=== PATIENT | female | born 1945 | race Caucasian/White ===

== ENCOUNTER 2024-01-21 13:51 | Inpatient (IN) | payer MEDICARE, OTHER, SELFPAY ==
[2024-01-21] VITALS (47 sets, daily range): BP systolic 65–111; BP diastolic 44–85; BMI 26.4
[2024-01-21 10:56] LABS: % Basophils 0.4 % (0-2); % Eosinophils 3.1 % (0-6); % Lymphocytes 5.4 % (20.5-51.1); % Monocytes 4.3 % (1.7-9.3); % Neutrophils 85.8 % (42.2-75.2); Absolute Basophils 0.1 10^3/uL (0-0.2); Absolute Eosinophils 0.9 10^3/uL (0-0.7); Absolute Immature Granulocytes 0.3 10^3/uL (0-0.05); Absolute Lymphocytes 1.5 10^3/uL (1.2-3.4); Absolute Monocytes 1.2 10^3/uL (0.1-0.6); Absolute Neutrophils 24.1 10^3/uL (1.4-6.5); Hematocrit 31.8 % (37.0-47.0); Hemoglobin 11.2 g/dL (12.0-16.0); Mean Corp Hgb Conc. 35.2 g/dL (33.0-37.0); Mean Corpuscular Hgb 31.9 pg (27.0-31.0); Mean Corpuscular Volume 90.6 fL (81.0-99.0); Mean Platelet Volume 9.1 fL (7.4-10.4); Nucleated Red Blood Cells % 0 %; Platelet Count 420 10^3/uL (130-400); Red Blood Cell Count 3.51 10^6/uL (4.20-5.40); Red Cell Dist. Width 13.9 % (11.5-14.5); White Blood Cell Count 28.1 10^3/uL (4.8-10.8)
[2024-01-21 11:00] LABS: Urine Albumin Trace (Neg - Trace); Urine Bilirubin Negative (Negative); Urine Character Very Cloudy (Clear); Urine Color Yellow; Urine Glucose Negative (Negative); Urine Ketone Negative (Negative); Urine Leukocyte 2+ (Negative); Urine Nitrite Positive (Negative); Urine Occult Blood 1+ (Negative); Urine Urobilinogen Negative (Neg - 1+)
[2024-01-21 11:08] LABS: ALT (SGPT) 21 U/L (0-35); AST (SGOT) 38 U/L (14-36); Alkaline Phosphatase 164 U/L (38-126); Blood Urea Nitrogen 45 mg/dl (7-17); Calcium 8.9 mg/dl (8.4-10.2); Carbon Dioxide 24 mmol/L (22-30); Chloride 93 mmol/L (98-107); Glucose 70 mg/dl (70-99); Lipase 11 U/L (23-300); Potassium 3.4 mmol/L (3.5-5.1); Sodium 126 mmol/L (135-145); Total Bilirubin 1.4 mg/dl (0.2-1.3); Total Protein 6.2 g/dl (6.3-8.2); eGFR > 60.00
--- NOTE | 2024-01-21 11:26 | ED.GENMED ---
History of Present Illness
General
Chief Complaint: Change in Mental Status
Source: patient and family
Exam Limitations: none
Time Seen by Provider: 01/21/24 10:35
Nursing documentation reviewed up to this point in time: agreed with
Travel History
Have you had any contact with someone who has COVID-19?: No
Do you have any symptoms of coronavirus? Fever > 100 degrees, chills, cough, shortness of breath, sore throat, loss of taste or smell, muscle aches, or headache?: No
History of Present Illness
History of Present Illness:
[facility] to progressively worsening generalized weakness, decreased appetite, along with confusion over the past 2 weeks. Per daughter, at bedside, patient appears to be more lethargic and less active.
Patient is complaining of sore mouth and has had ongoing nonproductive cough for the past 2 weeks. Denies vomiting or diarrhea. Denies chest pain. Denies shortness of breath. Denies headache. Denies dizziness.
Past History
Past History
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 Diff, urinary
incontinence, chronic urinary tract infection, kidney stone, Cellulitis, Lymph edema, MRSA. Chronic pain)
ED Past Surgical History: Appendectomy, Bowel resection ( He has had surgery for adhesions of the bowel, choledochojejunostomy), Cardiac (Catheterization, pacemaker), Cholecystectomy, Gynecological (Hysterectomy), Orthopedic (Laminectomy L4-L5 Left
knee replacement) and Urological (Bladder stimulator January 2014, lithotripsy, Stents)
Patient has exhibited threatening behavior?: No
PSI?: No
Social History
Tobacco: Former smoker
Alcohol: None
Drug: None
Personal:
Living: alone
Employment: Retired
Family History
Family History: Other
Review of Systems
Review of Systems
Allergies reviewed?: Yes
All Other Systems: ROS reviewed and negative except as documented in HPI and ROS
Constitutional: Reports no symptoms; Denies fever
EENT: Reports other (Sore mouth)
Respiratory: Reports cough; Denies trouble breathing
Cardiac: Reports no symptoms; Denies chest pain
ABD/GI: Reports no symptoms; Denies nausea, vomiting or diarrhea
Musculoskeletal: Reports no symptoms
Skin: Reports no symptoms
Neurological: Reports other (Mental status change)
Phy Exam
Physical Exam
Physical Exam:
Physical Exam
General: mild distress, not acutely ill. afebrile. weak appearing.
Head: nc/at. eomi
Neck: supple. no meningeal signs. normal posterior pharynx
Heart: irregularly irregular, no murmur. equal radial pulses.
Lungs: no acute respiratory distress. clear bilaterally
Abdomen: normal bowel sounds. not tender
Neuro: alert and oriented. no focal neurological deficits
Skin: no rash. dry mucosa. superficial blisters noted over b/l LE without purulent drainage or surrounding erythema/warmth.
Psychiatric: well kept. interactive and cooperative
Extremities: no edema. no calf tenderness.
Course
Orders/Labs/Results
Orders:
Orders
01/21/24 10:09
Electrocardiogram (*1) Urgent
Reason for Study: Fatigue / Weakness
01/21/24 10:10
EKG- Treatment ONCE
01/21/24 10:38
CMP [Comprehensive Metabolic Panel] Urgent
Complete Blood Count/With Diff Urgent
Digoxin Urgent
Comment: ADD ON
Lipase Urgent
Magnesium Urgent
Urinalysis Reflex To Culture Urgent
Date Specimen was Collected: 01/21/24
Time Specimen was Collected: 10:10
Urine Microscopic Reflex Cult Urgent
Urine Culture Urgent
MIRACLE Source: U
Specimen Description:
Date Specimen was Collected: 01/21/24
Time Specimen was Collected: 10:10
01/21/24 11:08
Add On- LAB Urgent
Tests Added?: digoxin level
01/21/24 11:26
Add On- LAB Urgent
Tests Added?: magnesium
CR Chest - 2 Views Urgent
Comment:
Reason For Exam: cough
01/21/24 11:27
0.9% Sodium Chloride 500 ml [Nss] 500 ml IV BOLUS
01/21/24 11:56
Vancomycin 1 Gram/200 ml [Vancocin] 1 gram in 200 ml IV NOW
01/21/24 12:48
PICC Line As Directed
Comment: midline
01/21/24 13:04
BNP [NT-proBNP] Urgent
Lactic Acid Q4H
Comment: CANCEL 2nd LACTIC ACID IF 1st LACTIC ACID IS LESS THAN 2
Blood Culture Q30M
MIRACLE Source: Blood/Venous
Specimen Description:
01/21/24 13:11
Admit/Transfer Patient As Directed
Co-Sign Provider:
Level of Care: Inpatient admission
Assign to:: ICU
Physician / Group: peyton felipe
Diagnosis: septic shock 2/2 pna hypovolemia r pna poss uti, hypoK
Reason for Hospitalization: septic shock 2/2 pna hypovolemia r pna poss uti, hypoK
Expected length of stay greater than two midnights?: Yes
ELOS- Estimated Length of Stay in days: 4
I certify the patient meets the requirements for IP care: Yes
Code Status As Directed
Resuscitation Status: Do not resuscitate
Reached after discussion with pt or family/Healthcare POA: Yes
Based on pt advanced directive or healthcare POA form: Yes
Decision communicated with: Her daughter Theresa at bedside
01/21/24 13:12
DNR Bracelet Application ONCE
01/21/24 13:31
Consult Infectious Disease [INFECTIOUS DISEASE CONSULT] Routine
Consulting Provider: Brigitte Allen
Was physician already notified: Yes
Reason for consult: septic shcok pna vs uti and hypovolemic
Speech screening from Nursing [Speech Screening from Luciana] Routine
01/21/24 13:45
0.9% Sodium Chloride 1000 ml [Nss] 1,000 ml IV 80 mls/hr
01/21/24 13:46
Blood Culture Q30M
MIRACLE Source: Blood/Venous
Specimen Description:
01/21/24 13:48
Rapid Strep Group A Urgent
MIRACLE Source: Throat/Pharynx
Specimen Description:
Date Specimen was Collected: 01/21/24
Time Specimen was Collected: 13:46
01/21/24 14:25
Acetaminophen [Tylenol] 650 mg PO Q4HPRN PRN
01/21/24 18:18
Magnesium Hydroxide [Milk of Magnesia] 30 ml PO DAILYPRN PRN
Oxycodone [Roxicodone] 5 mg PO TID@0900,1300,1700
01/21/24 18:18
VTE Contraindication Routine
VTE Mechanical Device Contraindication: Medical Contraindication
Pharmocologic Contraindication: Medical Contraindication
Comment: Patient on HOME HEALTH SPEECH THERAPIST Eliquis
Activity As Directed
Activity Level: With Assistance
Intake/ Output As Directed
Frequency: Per unit guidelines
Precautions As Directed
Type of Precautions: Other
Comment: fall
Vital Signs As Directed
Frequency: Per unit guidelines
Weight As Directed
Frequency: Daily
Incentive Spirometry [Rx Incentive Spirometry] [RESP] Routine
Frequency: q1h while awake
Pulse Ox/spot Check [RESP] Routine
Quantity: 1
Ot Eval And Treat Routine
Pt Eval And Treat Routine
Activity Level: With Assistance
Speech Therapy Eval & Treat Routine
01/21/24 18:38
Artificial Tears (Pf) [Refresh Eye Drops (Pf)] 1 drops BOTH EYES BIDPRN PRN
01/21/24 18:40
Glycerin [Glycerin Suppository Adult] 1 supp RECTAL DAILYPRN PRN
01/21/24 20:00
Apixaban [Eliquis] 5 mg PO BID
01/21/24 22:00
Melatonin 3 mg PO HS
Melatonin 5 mg PO HS
01/22/24 06:00
Complete Blood Count/With Diff IN AM
Comprehensive Metabolic Panel IN AM
01/22/24 08:00
Azithromycin 500 mg/250 ml [Zithromax Infusion] 500 mg in 250 ml IV Q24H
Cholecalciferol (Vitamin D3) [VITAMIN D3 (cholecalciferol)] 125 mcg PO DAILY
Digoxin [Lanoxin] 62.5 mcg PO SUTUTHSA@0800
Ferrous Sulfate [Feosol] 325 mg PO DAILY
Lidocaine [Lidocaine 4% Patch] 1 patch TOPICAL DAILY
Pancrelipase [Zenpep Delayed Release Capsule] 2 capsule PO BID@0800,1700
Sertraline HCl [Zoloft] 25 mg PO DAILY
01/23/24 06:00
Complete Blood Count/With Diff IN AM
Comprehensive Metabolic Panel IN AM
01/24/24 06:00
Complete Blood Count/With Diff IN AM
Comprehensive Metabolic Panel IN AM
01/25/24 06:00
Complete Blood Count/With Diff IN AM
Comprehensive Metabolic Panel IN AM
Abnormal Lab Results
01/21/24
10:38
WBC 28.1 H 10^3/uL
(4.8-10.8)
RBC 3.51 L 10^6/uL
(4.20-5.40)
Hgb 11.2 L g/dL
(12.0-16.0)
Hct 31.8 L %
(37.0-47.0)
MCH 31.9 H pg
(27.0-31.0)
Plt Count 420 H 10^3/uL
(130-400)
Abs Immat Gran (auto) 0.3 H 10^3/uL
(0-0.05)
Absolute Neuts (auto) 24.1 H 10^3/uL
(1.4-6.5)
Absolute Monos (auto) 1.2 H 10^3/uL
(0.1-0.6)
Absolute Eos (auto) 0.9 H 10^3/uL
(0-0.7)
Immature Gran % 1.0 H %
(0-0.5)
Neutrophils % 85.8 H %
(42.2-75.2)
Lymphocytes % 5.4 L %
(20.5-51.1)
Sodium 126 L mmol/L
(135-145)
Potassium 3.4 L mmol/L
(3.5-5.1)
Chloride 93 L mmol/L
(98-107)
BUN 45 H mg/dl
(7-17)
Total Bilirubin 1.4 H mg/dl
(0.2-1.3)
AST 38 H U/L
(14-36)
Alkaline Phosphatase 164 H U/L
(38-126)
Total Protein 6.2 L g/dl
(6.3-8.2)
Albumin 3.0 L g/dl
(3.5-5.0)
Lipase 11 L U/L
(23-300)
Ur Occult Blood Reflex 1+ A
(Negative)
Urine Nitrite (Reflex) Positive A
(Negative)
Leukocyte Esterase Rfl 2+ A
(Negative)
Urine Bacteria (Reflex) Many A
(Negative)
Digoxin < 0.4 L ng/ml
(0.8-2.0)
01/21/24 10:38
01/21/24 10:38
Vital Signs
Initial and Last Documented VS:
Initial Vital Signs
BP
106/53
01/21/24 09:50
Last Documented Vital Signs
Temp Pulse Resp BP Pulse Ox
97.9 F 72 16 92/52 95
01/21/24 18:32 01/21/24 17:45 01/21/24 17:45 01/21/24 17:40 01/21/24 17:45
MDM/Problems Addressed
MDM/Problems Addressed:
History, exam, chest x-ray and urinalysis concerning for pneumonia along with UTI, likely explaining for patient's overall weakness. Will be admitted for IV fluids and IV antibiotics.
*EKG
Interpreted by ED Provider?: Yes
EKG Intrepretation Date: 01/21/24
Heart Rate: 78
Rate: normal
Rhythm: a-fib
[place]: left axis deviation
Interval: normal interval
*Critical Care Note
Total Time (30-74mins, 75-104mins- exclusive of procedures): Not Applicable
ED Attending Note
-
Portions of this chart may have been created with voice recognition software.� Occasional wrong word or��sound alike� substitutions may have occurred due to the inherent limitations of voice recognition software.
Discharge Plan
Departure
Patient Disposition: Admit
Date of Disposition: 01/21/24
Time of Disposition: 12:11
Presentation/result/management discussed w/ accepting MD/DO: Hospitalist
Discharge Problem:
Pneumonia, Acute UTI
Interventions
Interventions:
*Risk Screen - Suicide Last Done: 01/21/24 10:04
*General Assessment Last Done: 01/21/24 18:35
*Neglect/Abuse Screening Last Done: 01/21/24 10:04
ED- Fall Risk Assessment Last Done: 01/21/24 10:09
*ED COVID-19 Vaccine History Last Done: 01/21/24 10:08
*Nursing Disposition Last Done: 01/21/24 18:35
ED- Pulmonary Assessment Last Done: 01/21/24 11:17
ED-Psychological Assessment Last Done: 01/21/24 17:05
ED- Neurological Assessment Last Done: 01/21/24 11:16
ED- Cardiac Assessment Last Done: 01/21/24 11:15
Discharge Date and Time
Discharge Date/Time: 01/21/24 18:35
[2024-01-21] MEDS: NSS 500 IV (11:40)
[2024-01-21 11:45] LABS: Urine Bacteria Many (Negative); Urine Red Blood Cell 0-2 /HPF (0-2); Urine Squamous Cell 0-2 /LPF (Few)
[2024-01-21 11:50] LABS: Digoxin < 0.4 ng/ml (0.8-2.0)
[2024-01-21 12:04] LABS: Magnesium 1.8 mg/dl (1.6-2.3)
--- NOTE | 2024-01-21 12:57 | HPS.HSE ---
Addendum entered and electronically signed by Arturo Serrano MD 01/21/24 14:30:
I saw and examined the patient.
The EXHIBIT ARTIST or PA's note was reviewed and I agree with the note.
Comment: 78-year-old female past medical history of cognitive decline, permanent atrial fibrillation, pacemaker, chronic diastolic CHF, GERD, hypertension, sleep apnea came to the hospital with confusion decreased appetite. Chest x-ray consistent
with possible pneumonia. Check Pro-Tonny. Monitor leukocytosis. She was tachycardic to 95 in ED. Meet sepsis criteria. Check blood culture. Continue with antibiotics. ID evaluation given multiple allergies. Gentle hydration. Admit to IMU.
Monitor volume status closely. Hold Lasix and Aldactone at this time. Follows up with Dr. FERNANDO More outpatient. speech to see
General: No Apparent Distress, Comfortable
HEENT: NormoCephalic, Anicteric, mild pharyngeal erythema
Respiratory: Clear; No Wheezes, Rales or Rhonchi
Cardiac: S1/S2, irregular irregular
Breast: Deferred by me
GI: Soft, Non Tender, Non Distended, Normal Bowel Sounds and No Hepatosplenomegaly
Rectal: Deferred by Provider
Genito-urinary: no rinaldi
Musculoskeletal: No edema, open blood blister left mid tib-fib, closed blood blister below that area no surrounding erythema)
Neuro: Awake, Alert, Oriented (To name, daughter, place but not year or history chronic moderate memory impairment per daughter), Nonfocal/grossly intact
Psych: Calm
DNR. Discussed with daughter at bedside
I spent a total of 78 minutes with the patient or on the floor. More than 50% of this time involved counseling and coordination of care.
Original Note:
Family Physician
-
Family Physician: Manuel Pimentel
Chief Complaint
-
Cough, weakness, decreased appetite increased confusion
History of Present Illness
78-year-old female from [facility] whose daughter states she has had a 3-week reported history of cough.
She has also had generalized weakness with decreased appetite and confusion increased during the day. She does have baseline memory impairment moderate per daughter not officially diagnosed but has follow-up with neurology on 01/31/2024. Daughter
reports cough x 3 weeks, she denies fever, chills, chest pain, shortness of breath, vomiting, diarrhea, abdominal pain, urinary symptoms. Her daughter also states she hit her left lower extremity on a wheelchair a few days ago has a open blood
blister with blood blister below that area currently no surrounding erythema dressing is intact. The patient has past medical history of permanent A-fib, chronic diastolic CHF, GERD, HTN, pacemaker chronic neck and back pain with neuropathy to
lower extremities on chronic oral opiates, sleep apnea, chronic lymphedema, C. difficile, chronic urinary incontinence with UTIs, renal calculi, history of MRSA, former smoker, iron deficiency
Medical History
Past Medical History
Past Medical History: Reports Other
Additional Past Medical History:
permanent A-fib
Pacemaker
chronic diastolic CHF
GERD
HTN,
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
sleep apnea
chronic lymphedema
C. difficile
chronic urinary incontinence with UTIs
renal calculi
history of MRSA
former smoker
Past Surgical History: Reports Other
Additional Past Surgical History:
Appendectomy
Bowel resection for adhesions
Cholecystectomy
Permanent pacemaker
Bladder stimulator January 2014
Hysterectomy
Laminectomy L4-L5
Left knee replacement
Renal calculi with lithotripsy and stents
Social History
Tobacco: Former Smoker (Daughter states quit many years ago)
Alcohol: None
Drug: None
Personal:
Living: Senior Living (Memory care unit)
Employment: Retired
Family History
Family History: Unable to Obtain
Allergies / Home Medications
Allergies reflects when Allergies were last updated in [facility].
Home Medications with original date entered in [facility]
Allergy/Medication List:
Allergies
Allergy/AdvReac Type Severity Reaction Status Date / Time
adhesive Allergy TAPE-TEARS Verified 07/16/23 15:12
SKIN/BLISTERS
Aminoglycosides Allergy SEE COMMENT Verified 07/16/23 15:12
cefoxitin sodium Allergy Hives; Verified 07/16/23 15:12
[From Mefoxin] TOLERATES
CEPHALEXIN
celecoxib [From Celebrex] Allergy 'my blood Verified 07/16/23 15:12
pressure
shot right
up'
codeine Allergy NAUSEA Verified 07/16/23 15:12
ONLY, GI
UPSET
fluvoxamine [Fluvoxamine] Allergy SEE BELOW Verified 07/16/23 15:12
Influenza Virus Vaccines Allergy PT COULD Verified 07/16/23 15:12
NOT MOVE
HER BODY
marijuana (cannabis) Allergy afib with Verified 07/16/23 15:12
[marijuana] topical
medical
marijuana
methenamine Allergy Dr. Campbell Verified 07/16/23 15:12
told her
she was
allergic
to this
nystatin [Nystatin] Allergy Anaphylaxis Verified 07/16/23 15:12
Penicillins Allergy Hives Verified 07/16/23 15:12
pentosan polysulfate sodium Allergy STOMACH, Verified 07/16/23 15:12
[From Elmiron] GI
PROBLEMS,
LIVER
FUNCTION
ISSUE
prochlorperazine Allergy EXTRAPYRAMIDAL Verified 07/16/23 15:12
SYMPTOMS
rifaximin [From Xifaxan] Allergy Itching Verified 07/16/23 15:12
Sulfa (Sulfonamide Allergy Hives Verified 07/16/23 15:12
Antibiotics)
tobramycin Allergy HIVES--CONFIRMED Verified 07/16/23 15:12
WITH
PATIENT
tolterodine tartrate Allergy Swelling Verified 09/25/23 15:12
[From Detrol]
warfarin [From Coumadin] Allergy tolerance Verified 07/16/23 15:12
to
coumadin-doesnt
work
Home Medications
zbwsev-hcddcrqt-vapcrwt 40,000-126,000-168,000 unit capsule, delay rel (Zenpep) 2 cap PO BID@0900,1700 Gastrointestinal issue 07/22/22
apixaban 5 mg tablet 5 mg PO BID@0900,2100 Blood clot prevention/tx 12/08/22
digoxin 125 mcg (0.125 mg) tablet (Digitek) 62.5 mcg PO SUTUTHSA@0800 Heart Failure 12/08/22
cholecalciferol (vitamin D3) 125 mcg (5,000 unit) tablet (Vitamin D3) 5,000 unit PO DAILY@0900 Supplement 02/05/23
Calazime Intensive Paste 1 applic topical DAILY apply to B/L buttocks 01/21/24
Calazime Intensive Paste 1 applic topical DAILYPRN PRN apply to buttocks for skin excoriation 01/21/24
Glycerine Suppository 1 supp MS DAILYPRN PRN constipation 01/21/24
acetaminophen 325 mg tablet (Tylenol) 650 mg PO Q4H PRN mild pain/temp of 100.4F or above 01/21/24
benzocaine 15 mg-menthol 3.6 mg lozenges (Sore Throat (benzocaine with menthol)) 1 louis mucous membrane Q1HPRN PRN sore throat 01/21/24
bisacodyl 10 mg rectal suppository (Dulcolax (bisacodyl)) 10 mg MS DAILY PRN constipation 01/21/24
dextran 70-hypromellose (PF) 0.1 %-0.3 % eye drops in a dropperette (Artificial Tears (PF)) 1 drp BOTH EYES BIDPRN PRN irritation 01/21/24
ferrous sulfate 142 mg (45 mg iron) tablet,extended release 142 mg PO DAILY@0900 01/21/24
furosemide 20 mg tablet 60 mg PO DAILY@0900 01/21/24
lidocaine 4 % topical patch 1 patch topical DAILY@0900 apply to right shoulder 01/21/24
magnesium hydroxide 400 mg/5 mL oral suspension (Milk of Magnesia) 30 ml PO DAILY PRN constipation 01/21/24
melatonin 3 mg tablet 3 mg PO DAILY@209901/21/24
melatonin 5 mg tablet 5 mg PO DAILY@209901/21/24
naloxone 4 mg/actuation nasal spray 4 mg intranasal DAILYPRN PRN opioid overdose 01/21/24
nebivolol 5 mg tablet 5 mg PO DAILY@89901/21/24
omega 1-vzv-oxh-fish oil 1,000 mg (120 mg-180 mg) capsule (Fish Oil) 1 cap PO DAILY@89901/21/24
oxycodone 5 mg tablet 5 mg PO DAILYPRN PRN breakthrough pain 01/21/24
oxycodone 5 mg tablet 5 mg PO TID@0900,1300,1700 01/21/24
sertraline 25 mg tablet 25 mg PO DAILY@89901/21/24
spironolactone 50 mg tablet 50 mg PO DAILY@89901/21/24
Review of Systems
-
History Source: Patient and Family (Daughter Theresa at bedside)
A 12 point ROS was completed and negative except as noted: Yes
Constitutional: Reports Fatigue; Denies Fever
EENT: Reports Sore Throat; Denies Runny Nose
Respiratory: Reports Cough (Nonproductive); Denies Trouble Breathing
Cardiac: Denies Chest Pain, Diaphoresis, Palpitations or Syncope
Abdomen/GI: Denies Abdominal Pain, Nausea, Vomiting, Diarrhea or Constipated
: Reports Incontinence (Chronic urinary); Denies Dysuria, Frequency or Difficulty Voiding
Musculoskeletal: Reports Edema (Trace edema bilateral lower extremities, open blood blister left mid tib-fib, closed blood blister below that area no surrounding erythema); Denies Joint Pain
Skin: Denies Itching or Rash
Neurological: Reports Weakness; Denies Dizzy or Headache
Endocrine: Reports No Symptoms
Hematologic/Lymphatic: Reports No Symptoms
Psych: Reports Calm
Physical Exam
Vital Signs
Vital Signs
Temp Pulse Resp BP Pulse Ox
98.1 F 74 14 95/67 93
01/21/24 10:03 01/21/24 12:30 01/21/24 12:30 01/21/24 12:07 01/21/24 11:30
Physical Exam
General: No Apparent Distress, Comfortable, Conversant and Obese
HEENT: NormoCephalic, Anicteric, PERRLA, No Ptosis, Pharyngeal Efythema (mild no pustules on tonsils) and Other (Dry oral mucosa)
Respiratory: Clear; No Wheezes, Rales or Rhonchi
Cardiac: S1/S2 and Peripheral Edema (Trace bilateral); No Murmur, Rub or Gallop
Breast: Deferred by me
GI: Soft, Non Tender, Non Distended, Normal Bowel Sounds and No Hepatosplenomegaly
Rectal: Deferred by Provider
Genito-urinary: Deferred by me
Musculoskeletal: No Clubbing, No Cyanosis, Edema, Left Lower Extremity (Trace edema bilateral lower extremities, open blood blister left mid tib-fib, closed blood blister below that area no surrounding erythema) and Edema, Right Lower Extremity
(Trace edema); No Edema, Left Upper Extremity or Edema, Right Upper Extremity
Skin: Warm, Dry and Ulcers (Trace edema bilateral lower extremities, open blood blister left mid tib-fib, closed blood blister below that area no surrounding erythema); No Rash
Neuro: Awake, Alert, Oriented (To name, daughter, place but not year or history chronic moderate memory impairment per daughter), Nonfocal/grossly intact and Cranial Nerves Intact; No Facial Droop or Tremors
Psych: Calm
Laboratory Results
-
01/21/24 10:38
01/21/24 10:38
Laboratory Results
Total Bilirubin 1.4 mg/dl (0.2-1.3) H 01/21/24 10:38
AST 38 U/L (14-36) H 01/21/24 10:38
ALT 21 U/L (0-35) 01/21/24 10:38
Alkaline Phosphatase 164 U/L (38-126) H 01/21/24 10:38
Lipase 11 U/L (23-300) L 01/21/24 10:38
Impression/Plan
-
Impression/plan:
Admit to IMU
#Septic shock 2/2 right basilar PNA /hypovolemia with possible UTI
#Hx COVID October 2023
-89/44> 95/67 post 500 cc NSS
WBC 28, 91% RA, 98.1, HR 70
-Speech swallow eval for possible aspiration
-Blood cultures x 2, check lactic acid, check BMP
-IV Zithromax, IV Rocephin as tolerated Keflex
-IV NSS 500 cc bolus given in ER, continue IV NSS 80 cc an hour x 1 L
-Consult ID
-Consult for midline
-Check strep culture as patient reports sore throat with erythema
Follow CBC, CMP
PT/OT/case management consult
#Hyponatremia hypovolemic
NA 126
IV NSS 500 cc
Follow BMP
#Hypokalemia
-K3.4
-KCl rider 40 mEq
#Left lower extremity open blister, with below blood blister
#Chronic peripheral edema with peripheral neuropathy
-Consult wound care
#Chronic back pain/shoulder pain
-Continue oxycodone 5 mg 3 times daily hold for sedation
#Hx C. difficile
-Monitor for any diarrhea
#Chronic urinary incontinence
#Bladder stimulator January 2014
-Positive pyuria will follow urine culture
#Chronic memory impairment�moderate not formally diagnosed
Is oriented to name, daughter Theresa but not year
#Depression-New diagnosis 2 weeks ago
-Started Zoloft 25 mg approximately 01/03/2024
#Pacemaker-bradycardia
#Permanent A-fib
-Follow [facility] cardiology
-Hold metoprolol
-Continue digoxin 62.5 mcg with hold parameters
-Continue Eliquis
#Chronic diastolic CHF�no acute exacerbation
I/O, daily weights
-Hold current Lasix, spironolactone due to hypotension
2D echo 07/24/2022: EF 50-55%, normal LVS LVSF, diastolic function indeterminate due to A-fib, pacemaker wire seen, severe left atrial dilation no valvular issues no evidence of pulm HTN
#Sleep apnea hx
-Used to use machine but no longer has use in the past several years
#History of resection secondary to adhesions
# GERD
-No PPI listed
#Pancreatic insufficiency
-Continue Zenpep twice daily
#Chronic ambulatory dysfunction
Uses walker to wheelchair max assist to
#Chronic right shoulder pain with limited range of motion to shoulder level
-Continue lidocaine patch right shoulder
#Iron deficiency
Hgb stable 11.2
-Continue Feosol
#Insomnia
-Family has tried melatonin with no relief
#Obesity due to excess calorie consumption
Low-fat diet recommended
DVT prophylaxis
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
DNR per daughter Theresa at bedside
[2024-01-21 13:29] LABS: Lactic Acid 1.2 mmol/L (0.7-2.0)
[2024-01-21] MEDS: NSS 1000 IV (13:53)
[2024-01-21] MEDS: VANCOCIN 200 IV (13:53)
[2024-01-21 14:04] LABS: NT-proBNP 4140 pg/ml
--- NOTE | 2024-01-21 14:20 | EDRN ---
straight cath on arrival
--- NOTE | 2024-01-21 14:23 | CON.ID ---
Consultation
-
Date/Time Consultation Requested: 01/21/2024 1331
Date/Time Consultation Performed: 01/21/2024 1425
Requesting Provider: Dr. Arturo Serrano
Performing Provider: Dr. Brigitte Allen
Reason for Consultation: PNA, UTI
Chief Complaint / Past History
Chief Complaint
Cough
History of Present Illness
78-year-old female with atrial fibrillation, pacemaker placement, pulmonary hypertension, lower extremity lymphedema, urinary incontinence who presented to the hospital today from longterm due to weakness and confusion. She has been having
cough for about 3 weeks. She reports 'gunky' phlegm. No shortness of breath. Her appetite has been poor. She is feeling weaker. Also with mild dysuria. No flank pain. She complains of chronic right knee pain. No nausea vomiting or diarrhea.
WBC is 28. Hypotensive responded to fluid.
Past History
Additional Past Medical History:
HFpEF
BLE lymphedema
Afib
PPM
Pulm HTN
BRITTON, not on CPAP
UTI
C. diff
nephrolithiasis hx lithotripsy/stents
bladder stimulator
choledochojejunostomy
appendectomy
L TKR
L4-L5 laminectomy
Allergy History:
adhesive Allergy (Verified 07/16/23 15:12)
TAPE-TEARS SKIN/BLISTERS
Aminoglycosides Allergy (Verified 07/16/23 15:12)
SEE COMMENT
cefoxitin sodium [From Mefoxin] Allergy (Verified 07/16/23 15:12)
Hives; TOLERATES CEPHALEXIN
celecoxib [From Celebrex] Allergy (Verified 07/16/23 15:12)
'my blood pressure shot right up'
codeine Allergy (Verified 07/16/23 15:12)
NAUSEA ONLY, GI UPSET
fluvoxamine [Fluvoxamine] Allergy (Verified 07/16/23 15:12)
SEE BELOW
Influenza Virus Vaccines Allergy (Verified 07/16/23 15:12)
PT COULD NOT MOVE HER BODY
marijuana (cannabis) [marijuana] Allergy (Verified 07/16/23 15:12)
afib with topical medical marijuana
methenamine Allergy (Verified 07/16/23 15:12)
Dr. Campbell told her she was allergic to this
nystatin [Nystatin] Allergy (Verified 07/16/23 15:12)
Anaphylaxis
Penicillins Allergy (Verified 07/16/23 15:12)
Hives
pentosan polysulfate sodium [From Elmiron] Allergy (Verified 07/16/23 15:12)
STOMACH, GI PROBLEMS, LIVER FUNCTION ISSUE
prochlorperazine Allergy (Verified 07/16/23 15:12)
EXTRAPYRAMIDAL SYMPTOMS
rifaximin [From Xifaxan] Allergy (Verified 07/16/23 15:12)
Itching
Sulfa (Sulfonamide Antibiotics) Allergy (Verified 07/16/23 15:12)
Hives
tobramycin Allergy (Verified 07/16/23 15:12)
HIVES--CONFIRMED WITH PATIENT
tolterodine tartrate [From Detrol] Allergy (Verified 07/16/23 15:12)
Swelling
warfarin [From Coumadin] Allergy (Verified 07/16/23 15:12)
tolerance to coumadin-doesnt work
Medications Reviewed: Yes
Current Antibiotics:
ceftriaxone
Azithromycin
Social History
Tobacco: Former Smoker
Alcohol: None
Drug: None
Living: Group Home
Family History
Family History: Not Pertinent
Review of Systems
Review of Systems
General: Chills and Change in Appetite; Negative Fever
HEENT: Pharyngitis; Negative Sinus Problems or Headache
Cardiovascular: Negative Chest Pain
Respiratory: Cough and Sputum Production; Negative Dyspnea
Gasteroenterology: Negative Nausea or Vomiting
Genital / Urological: Dysuria; Negative Flank Pain
Endocrine: Weakness
Musculoskeletal: Arthralgias (right knee)
Skin / Hair / Nails: Negative Rash
Neurological: Negative Headache or Dizziness
All systems: All other systems were reviewed and were negative
Vital Signs
Temp Pulse Resp BP Pulse Ox
98.1 F 82 15 92/69 93
01/21/24 10:03 01/21/24 14:00 01/21/24 14:00 01/21/24 14:00 01/21/24 11:30
Physical Exam
Physical Exam
Constitutional: No Acute Distress
Eyes: No Conjunctival Hemorrhage and Sclera Anicteric
Cardiovascular: Regular Rate, S1/S2 and Other (PPM site without erythema/tenderness)
Pulmonary: Rales (right base)
Gastrointestinal: Soft, Non Tender and Non Distended
Extremities: Venous Insufficiency; Negative Edema or Erythema
Musculoskeletal: Other (R Knee no effuison/erythema/warmth)
Neurological: Awake
Lab / Diagnostic Study Results
01/21/24 10:38
01/21/24 10:38
Abs Immat Gran (auto) 0.3 10^3/uL (0-0.05) H 01/21/24 10:38
Absolute Neuts (auto) 24.1 10^3/uL (1.4-6.5) H 01/21/24 10:38
Absolute Lymphs (auto) 1.5 10^3/uL (1.2-3.4) 01/21/24 10:38
Absolute Monos (auto) 1.2 10^3/uL (0.1-0.6) H 01/21/24 10:38
Absolute Basos (auto) 0.1 10^3/uL (0-0.2) 01/21/24 10:38
Immature Gran % 1.0 % (0-0.5) H 01/21/24 10:38
Neutrophils % 85.8 % (42.2-75.2) H 01/21/24 10:38
Lymphocytes % 5.4 % (20.5-51.1) L 01/21/24 10:38
Monocytes % 4.3 % (1.7-9.3) 01/21/24 10:38
Eosinophils % 3.1 % (0-6) 01/21/24 10:38
Basophils % 0.4 % (0-2) 01/21/24 10:38
Lactic Acid Cancelled 01/21/24 16:00
Ur Squamous Epith Cells 0-2 /LPF (Few) 01/21/24 10:38
Microbiology Results
Micro:
01/21/24 13:48 Streptococcus Screen (MIRACLE) - Pending
Throat/Pharynx Streptococcus Rapid Screen - Final
Rapid Strep Screen (Group A) Negative
01/21/24 13:46 Blood Culture - Pending
Blood/Venous
01/21/24 13:04 Blood Culture - Pending
Blood/Venous
01/21/24 10:38 Urine Culture - Pending
Urine
01/21/24 CXR: Right basilar airspace opacity likely within the right lower lobe suspicious for pneumonia. Atelectasis is the alternative consideration.
Assessment / Plan
#R PNA
# Symptomatic UTI
# Sepsis: leukocytosis, low BP
- Follow blood cx's, Ucx
- Continue azithromycin.
-replace ceftriaxone with cefepime for now
-trend wbc
[2024-01-21] MEDS: TYLENOL 650 MG PO (14:29)
--- NOTE | 2024-01-21 14:30 | W.PN.UPDATE ---
Update Note
Progress Note Update
I saw and examined the patient.
The CHIEF STEWARD/STEWARDESS or PA's note was reviewed and I agree with the note.
Comment: 78-year-old female past medical history of cognitive decline, permanent atrial fibrillation, pacemaker, chronic diastolic CHF, GERD, hypertension, sleep apnea came to the hospital with confusion decreased appetite. Chest x-ray consistent
with possible pneumonia. Check Pro-Tonny. Monitor leukocytosis. She was tachycardic to 95 in ED. Meet sepsis criteria. Check blood culture. Continue with antibiotics. ID evaluation given multiple allergies. Gentle hydration. Admit to IMU.
Monitor volume status closely. Hold Lasix and Aldactone at this time. Follows up with Dr. FERNANDO More outpatient. speech to see
General: No Apparent Distress, Comfortable
HEENT: NormoCephalic, Anicteric, mild pharyngeal erythema
Respiratory: Clear; No Wheezes, Rales or Rhonchi
Cardiac: S1/S2, irregular irregular
Breast: Deferred by me
GI: Soft, Non Tender, Non Distended, Normal Bowel Sounds and No Hepatosplenomegaly
Rectal: Deferred by Provider
Genito-urinary: no rinaldi
Musculoskeletal: No edema, open blood blister left mid tib-fib, closed blood blister below that area no surrounding erythema)
Neuro: Awake, Alert, Oriented (To name, daughter, place but not year or history chronic moderate memory impairment per daughter), Nonfocal/grossly intact
Psych: Calm
DNR. Discussed with daughter at bedside
I spent a total of 78 minutes with the patient or on the floor. More than 50% of this time involved counseling and coordination of care.
[2024-01-21 15:18] LABS: Procalcitonin 0.49 ng/ml (0.0-0.25)
[2024-01-21] MEDS: ZITHROMAX INFUSION 250 IV (15:22)
[2024-01-21] MEDS: MAXIPIME 2000 MG IV (15:34)
--- NOTE | 2024-01-21 16:05 | W.PN.UPDATE ---
Update Note
Progress Note Update
Septic shock with hypotension
Upgrade to ICU
Patient with BP 65/51 despite 500 cc NSS, IV NSS 80 cc an hour
-Give additional 250 cc bolus, will not be aggressive with fluids due to history of CHF
-Start Levophed drip
--Consult telephone services sales representative
--- NOTE | 2024-01-21 16:15 | CON.INTV ---
Consultation
Consultation Request
Date/Time Consultation Requested: 01/21/24
Date/Time Consultation Performed: 01/21/24
Performing Provider: Jonny
Reason for Consultation: ICU
Medical History
-
History of Present Illness:
Patient is a 78-year-old female with past medical history of cognitive decline, permanent atrial fibrillation, SSS s/p pacemaker, chronic diastolic CHF, GERD, hypertension, sleep apnea presenting to ER with confusion and decreased appetite.
Chest x-ray obtained indicating RLL consolidation possible PNA. She was also noted to be hypotensive, given IVFs wtih no improvement, likely to require pressors. She does not give history due to her cognitive impairment.
WBC 28.1 on arrival, Na 126, proBNP 4140, procal 0.49. UA also positive for nitrites/LE/many bacteria.
She is admitted to ICU for possible septic shock.
Past Medical History
Past Medical History: Other (see list below)
Social History
Tobacco: Non-smoker
Alcohol: None
Drug: None
Family History
Family History: Reviewed & Not Pertinent
Allergies / Home Medications
Allergies
Allergy/AdvReac Type Severity Reaction Status Date / Time
adhesive Allergy TAPE-TEARS Verified 07/16/23 15:12
SKIN/BLISTERS
Aminoglycosides Allergy SEE COMMENT Verified 07/16/23 15:12
cefoxitin sodium Allergy Hives; Verified 07/16/23 15:12
[From Mefoxin] TOLERATES
CEPHALEXIN
celecoxib [From Celebrex] Allergy 'my blood Verified 07/16/23 15:12
pressure
shot right
up'
codeine Allergy NAUSEA Verified 07/16/23 15:12
ONLY, GI
UPSET
fluvoxamine [Fluvoxamine] Allergy SEE BELOW Verified 07/16/23 15:12
Influenza Virus Vaccines Allergy PT COULD Verified 07/16/23 15:12
NOT MOVE
HER BODY
marijuana (cannabis) Allergy afib with Verified 07/16/23 15:12
[marijuana] topical
medical
marijuana
methenamine Allergy Dr. Campbell Verified 07/16/23 15:12
told her
she was
allergic
to this
nystatin [Nystatin] Allergy Anaphylaxis Verified 07/16/23 15:12
Penicillins Allergy Hives Verified 07/16/23 15:12
pentosan polysulfate sodium Allergy STOMACH, Verified 07/16/23 15:12
[From Elmiron] GI
PROBLEMS,
LIVER
FUNCTION
ISSUE
prochlorperazine Allergy EXTRAPYRAMIDAL Verified 07/16/23 15:12
SYMPTOMS
rifaximin [From Xifaxan] Allergy Itching Verified 07/16/23 15:12
Sulfa (Sulfonamide Allergy Hives Verified 07/16/23 15:12
Antibiotics)
tobramycin Allergy HIVES--CONFIRMED Verified 07/16/23 15:12
WITH
PATIENT
tolterodine tartrate Allergy Swelling Verified 07/16/23 15:12
[From Detrol]
warfarin [From Coumadin] Allergy tolerance Verified 07/16/23 15:12
to
coumadin-doesnt
work
Home Medications
�Medication �Instructions �Recorded �Confirmed �Last Taken �Type
wvcbra-oklrumnk-cxszfsf 2 cap PO BID@0900,1700 07/22/22 01/21/24 05/17/23 History
40,000-126,000-168,000 unit Gastrointestinal issue
capsule, delay rel (Zenpep)
apixaban 5 mg tablet 5 mg PO BID@0900,2100 Blood clot 12/08/22 01/21/24 07/16/23 08:00 History
prevention/tx
digoxin 125 mcg (0.125 mg) tablet 62.5 mcg PO SUTUTHSA@0800 Heart 12/08/22 01/21/24 05/17/23 History
(Digitek) Failure
cholecalciferol (vitamin D3) 125 5,000 unit PO DAILY@0900 Supplement 02/05/23 01/21/24 05/17/23 History
mcg (5,000 unit) tablet (Vitamin
D3)
Calazime Intensive Paste 1 applic topical DAILY apply to 01/21/24 01/21/24 Unknown History
B/L buttocks
Calazime Intensive Paste 1 applic topical DAILYPRN PRN 01/21/24 01/21/24 Unknown History
apply to buttocks for skin
excoriation
Glycerine Suppository 1 supp MN DAILYPRN PRN constipation 01/21/24 01/21/24 Unknown History
acetaminophen 325 mg tablet 650 mg PO Q4H PRN mild pain/temp 01/21/24 01/21/24 Unknown History
(Tylenol) of 100.4F or above
benzocaine 15 mg-menthol 3.6 mg 1 louis mucous membrane Q1HPRN PRN 01/21/24 01/21/24 Unknown History
lozenges (Sore Throat (benzocaine sore throat
with menthol))
bisacodyl 10 mg rectal suppository 10 mg MN DAILY PRN constipation 01/21/24 01/21/24 Unknown History
(Dulcolax (bisacodyl))
dextran 70-hypromellose (PF) 0.1 1 drp BOTH EYES BIDPRN PRN 01/21/24 01/21/24 Unknown History
%-0.3 % eye drops in a dropperette irritation
(Artificial Tears (PF))
ferrous sulfate 142 mg (45 mg 142 mg PO DAILY@0900 Supplement 01/21/24 01/21/24 Unknown History
iron) tablet,extended release
furosemide 20 mg tablet 60 mg PO DAILY@0900 Fluid 01/21/24 01/21/24 Unknown History
Retention/Swelling
lidocaine 4 % topical patch 1 patch topical DAILY@0900 apply 01/21/24 01/21/24 Unknown History
to right shoulder
magnesium hydroxide 400 mg/5 mL 30 ml PO DAILY PRN constipation 01/21/24 01/21/24 Unknown History
oral suspension (Milk of Magnesia)
melatonin 3 mg tablet 3 mg PO DAILY@2100 Sleep 01/21/24 01/21/24 Unknown History
melatonin 5 mg tablet 5 mg PO DAILY@2100 Sleep 01/21/24 01/21/24 Unknown History
naloxone 4 mg/actuation nasal spray 4 mg intranasal DAILYPRN PRN 01/21/24 01/21/24 Unknown History
opioid overdose
nebivolol 5 mg tablet 5 mg PO DAILY@0900 Blood Pressure 01/21/24 01/21/24 Unknown History
omega 9-tcv-vyu-fish oil 1,000 mg 1 cap PO DAILY@0900 Supplement 01/21/24 01/21/24 Unknown History
(120 mg-180 mg) capsule (Fish Oil)
oxycodone 5 mg tablet 5 mg PO DAILYPRN PRN breakthrough 01/21/24 01/21/24 Unknown History
pain
oxycodone 5 mg tablet 5 mg PO TID@0900,1300,1700 Pain 01/21/24 01/21/24 Unknown History
sertraline 25 mg tablet 25 mg PO DAILY@0900 Mental Health 01/21/24 01/21/24 Unknown History
spironolactone 50 mg tablet 50 mg PO DAILY@0900 Blood Pressure 01/21/24 01/21/24 Unknown History
Review of Systems
-
History Source: [facility] and Transfer Record
Vitals / Labs / Diagnostic Testing
Vital Signs
Temp Pulse Resp BP Pulse Ox
98.1 F 75 15 92/69 93
01/21/24 10:03 01/21/24 14:15 01/21/24 14:15 01/21/24 14:00 01/21/24 11:30
Lab Data
01/21/24 10:38
01/21/24 10:38
Microbiology
01/21/24 13:48 Throat/Pharynx Streptococcus Rapid Screen - Final
Rapid Strep Screen (Group A) Negative
Diagnostic Testing:
Physical Exam
-
HEENT: Normocephalic, Anicteric, Moist Mucous Membranes and Other (temporal wasting noted)
Cardiovascular: S1/S2 and Regular Rhythm
Respiratory: Clear and Non-Labored Respirations
GI: Soft, Non Distended and Non Tender
Neurology: Awake, No Motor Deficits and Other (lethargic but arousable, fatigued)
Skin: Warm, Dry and Other (pale)
General: Comfortable, Poor Appetite and Other (NAD)
Assessment
-
Patient is a 78-year-old female with past medical history of cognitive decline, permanent atrial fibrillation, SSS s/p pacemaker, chronic diastolic CHF, GERD, hypertension, sleep apnea presenting to ER with confusion and decreased appetite.
Chest x-ray obtained indicating RLL consolidation possible PNA. UA also positive for nitrites/LE/many bacteria. She was also noted to be hypotensive, given IVFs wtih no improvement, likely to require pressors. She is admitted to ICU for possible
septic shock.
Septic shock s/p IVFs
UTI vs PNA
Leukocytosis
Decreased oral intake/FTT/temporal wasting
Mild transaminitis
Acute HFpEF suspected, proBNP 4140
Hyponatremia
Hypokalemia
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
Chronic cystitis
Chronic pain syndrome
GERD
Essential hypertension
Paroxysmal Atrial Fibrillation/SSS s/p PPM
Chronic heart failure with preserved ejection fraction
Osteoarthritis
s/p MELISSA-BSO at 37 yo c/b Pseudomonas wound infection
Ovarian cyst rupture, infection-laparotomy as teenager
History of complications from open cholecystectomy-choledochojejunostomy
Varicose Veins/Insufficiency
History of GI bleeding-Hospitalization
Appendicitis s/p Appendectomy
History of C.diff-vanc PO x 2 yrs (2006)
Pulmonary Hypertension
Nephrolithiasis s/p lithotripsy/stent
TIA (2012)
Degenerative disc wgptjdl-phdcju-wxabvytaoob-L4/5
Breast lumps s/p b/l-lumpectomy left, benign
Obstructive Sleep [place] C-PAP w/O2
Lymphedema
hx stroke
DM 2
Hepatitis
Pseudogout in right wrist
Colon polyps
Hx L Medial tibial plateau fx s/p L knee replacement 09/2021
Chronic Pancreatitis
Anemia
hx COVID19
Plan
Baseline MS reported as cognitively impaired, AAOx 1
Chronic pain syndrome, notes pain in her legs
Pain/sedation: PRN, hold doses for oversedation
RASS goals: 0
Hemodynamically unstable, likely to require pressors.
Requiring pressors: Can start levophed if needed
Cardiac history reviewed--HTN, CHF, Afib/SSS s/p PPM
Prior ECHO reviewed indicating normal function in 2021, would need repeat study
proBNP 4140, suggesting component of volume
Hold home meds while hypotensive
Oxygen needs: stable on room air
Prior history of lung disease: none
Supplemental O2 as indicated to maintain sats > 89%
CXR/CT reviewed indicating RLL opacity, fluid vs aspiration
Speech eval
Abx continued, sputum culture if able
NPO, resume diet when able
Decreased PO intake/appears there is protein calorie malnutrition
Pharmacy Customer Care Specialist recommendations
Aspiration precautions, HOB > 30 degrees
Speech therapy eval can be considered if at elevated risk
GI prophylaxis if indicated for mechanical ventilation >48 hours, prior history of GERD, stress ulcer formation in the critically ill
Creat at baseline, no history of renal disease
Void trials
Follow urine output, critical I/Os
Replete electrolytes as needed
Fever and increased WBC on presentation, suspect underlying UTI
WBC 28.1 on arrival, Na 126, procal 0.49.
Started on empiric antibiotics
Cultures sent/pending
Blood
Urine
Follow fever trend, WBC count
CBC stable, no signs of bleeding or coagulopathy.
DVT prophylaxis as assessed based on risk, including mechanical SCDs
Can transfuse if indicated for Hb <7, plt < 10
No prior h/o thyroid disease
H/o diabetes, can continue on home meds, SS for coverage
Check a1c
We will follow
Diagnostic Data
Chest X-Ray: 01/21/24- Right basilar airspace opacity likely within the right lower lobe suspicious for pneumonia. Atelectasis is the alternative consideration.
CT Scan: AP 02/11/21- 1. No acute abnormality identified within the abdomen or pelvis.
2. Trace left pleural effusion.
3. Stable postsurgical findings related to prior choledochojejunostomy and small bowel resection/anastomosis. No evidence for small bowel obstruction. Moderate volume of stool within the colon including within the rectum.
4. Atrophic/calcified pancreas compatible with chronic pancreatitis.
Echo: 07/24/22- Normal left ventricular chamber size with mild concentric remodeling. Normal left ventricular systolic function. Left ventricular ejection fraction is 50- 55% by Avelar's method. Diastolic function indeterminate due to atrial
fibrillation. Normal right ventricular size and function. Pacer wire seen. Severe left atrial dilation. Aortic sclerosis without stenosis. No other significant valve abnormalities were observed. No evidence of pulmonary hypertension.
PFT's:
Reports and relevant images were personally reviewed.
-----
Critical Care time 65 mins -- The patient is admitted for acute critical illness for the treatment of vital organ failure and/or prevention of further life-threatening conditions. Total care includes time spent in review of history, physical exam,
medications, hemodynamic/ventilator parameters, laboratory data, imaging and discussion with house staff, pharmacy, respiratory therapy, cartridge filler, and nursing.
[2024-01-21] MEDS: LEVOPHED 250 IV (16:49)
[2024-01-21] MEDS: STERILE WATER FOR INJECTION 10 ML IV (17:33)
--- NOTE | 2024-01-21 18:30 | PTCARENOTE ---
Received pt from ER into ICU rm [id number]. Pt drowsy, awakens to verbal stimuli, ox2; required reorientation to time. Afib on monitor. SpO2 94% on RA. Levo gtt infusing via #22 R FA; titrated to keep SBP >90. Inc b/b. Pure wick in place. Completed CHG
bath provided. R DL PICC repositioned in ER, awaiting x-ray results. Pt. acclimated to rm and instructed on how to report care concerns. Call karimi in reach. Bed alarm active.
[2024-01-21] MEDS: ELIQUIS 5 MG PO (21:01)
[2024-01-21] MEDS: MELATONIN 5 MG PO (21:02)
[2024-01-21] MEDS: ROXICODONE 5 MG PO (21:04)
[2024-01-21] MEDS: MELATONIN 3 MG PO (21:04)
[2024-01-21 21:13] LABS: Blood Urea Nitrogen 44 mg/dl (7-17); Calcium 8.5 mg/dl (8.4-10.2); Carbon Dioxide 21 mmol/L (22-30); Chloride 97 mmol/L (98-107); Estimated Creatinine Clearance 47 ml/min; Glucose 73 mg/dl (70-99); Magnesium 1.6 mg/dl (1.6-2.3); Potassium 3.1 mmol/L (3.5-5.1); Sodium 127 mmol/L (135-145); eGFR > 60.00
--- NOTE | 2024-01-21 22:00 | PTCARENOTE ---
Rec'd care of patient at 1920. Daughter at bedside. Patient alert and oriented to self and place. Anxious and forgetful at times. Drowsy. Afebrile. VSS. Levophed gtt increased to 4mcg/min for SBP>90. IVFs infusing as ordered. Afib/Vpaced on tele
monitor. Rate in the 60-70's. No edema noted. Palpable pulses. POX 94-98% on RA. Lung sounds diminished throughout. Crackles [address] posteriorly on the right. +BS. Per daughter, patient has had poor appetite and PO intake recently.
Incontinent of large BM and diane urine. Michaela care performed as needed. Full assessment and care as charted on worklist.
[2024-01-21] MEDS: KCL 270 MEQ IV (22:07)
[2024-01-21] MEDS: MAGNESIUM SULFATE 50 IV (22:18)
--- NOTE | 2024-01-21 22:45 | W.PN.SEPSIS ---
Sepsis
Vital Signs
Temp Pulse Resp BP Pulse Ox
98.5 F 70 15 99/60 95
01/21/24 20:29 01/21/24 22:15 01/21/24 22:15 01/21/24 22:15 01/21/24 22:22
Physical Exam
Physical Exam:
A focused exam was performed after fluid resuscitation.
Capillary Refill
Bilateral Lower Extremity:
Kenney Time: Less than 3 sec
Pulse Evaluation
Bilateral Dorsalis Pedis:
Pulse Evaluation: Present
Additional Information
Patient on 4mcg of levophed. 500ml bolus of fluids, Concern for CHF.
[2024-01-22] VITALS (59 sets, daily range): BP systolic 75–125; BP diastolic 48–91; BMI 26.2
--- NOTE | 2024-01-22 00:30 | PTCARENOTE ---
Systems reviewed. Minor changes. Trace anasarca. Pt remains on RA with POX 97-98%. Potassium and Magnesium repleted. Attempted to wean Levophed; SBP dropped below goal. Levophed remains at 4 mcg/min.
[2024-01-22] MEDS: MAXIPIME 2000 MG IV ×2 (03:45→16:28)
[2024-01-22] MEDS: STERILE WATER FOR INJECTION 10 ML IV ×2 (03:45→16:28)
[2024-01-22 03:50] LABS: % Basophils 0.2 % (0-2); % Eosinophils 0.1 % (0-6); % Lymphocytes 6.3 % (20.5-51.1); % Monocytes 4.1 % (1.7-9.3); % Neutrophils 88.3 % (42.2-75.2); Absolute Basophils 0.1 10^3/uL (0-0.2); Absolute Immature Granulocytes 0.3 10^3/uL (0-0.05); Absolute Lymphocytes 1.8 10^3/uL (1.2-3.4); Absolute Monocytes 1.2 10^3/uL (0.1-0.6); Absolute Neutrophils 24.7 10^3/uL (1.4-6.5); Hematocrit 29.9 % (37.0-47.0); Hemoglobin 10.1 g/dL (12.0-16.0); Mean Corp Hgb Conc. 33.8 g/dL (33.0-37.0); Mean Corpuscular Hgb 31.8 pg (27.0-31.0); Mean Platelet Volume 8.9 fL (7.4-10.4); Nucleated Red Blood Cells % 0 %; Platelet Count 414 10^3/uL (130-400); Red Blood Cell Count 3.18 10^6/uL (4.20-5.40); Red Cell Dist. Width 13.9 % (11.5-14.5)
[2024-01-22 03:56] LABS: PT 50.3 Sec (11.4-14.6)
[2024-01-22 03:57] LABS: APTT 50.1 Sec (23.4-35.0)
--- NOTE | 2024-01-22 04:00 | PTCARENOTE ---
Pt resting comfortably. No changes. VSS. AM labs sent.
[2024-01-22 04:04] LABS: INR 5.49
--- NOTE | 2024-01-22 04:23 | RESPNOTE ---
Pt unable to do Incentive Spirometer at this time. Pt has dementia and Dx of Pneumonia and too weak.
[2024-01-22 04:35] LABS: ALT (SGPT) 19 U/L (0-35); AST (SGOT) 35 U/L (14-36); Albumin 2.5 g/dl (3.5-5.0); Alkaline Phosphatase 133 U/L (38-126); Blood Urea Nitrogen 41 mg/dl (7-17); Calcium 8.4 mg/dl (8.4-10.2); Carbon Dioxide 19 mmol/L (22-30); Chloride 100 mmol/L (98-107); Estimated Creatinine Clearance 53 ml/min; Glucose 84 mg/dl (70-99); Magnesium 2.4 mg/dl (1.6-2.3); Potassium 3.6 mmol/L (3.5-5.1); Sodium 129 mmol/L (135-145); Total Bilirubin 1.1 mg/dl (0.2-1.3); Total Protein 5.3 g/dl (6.3-8.2); eGFR > 60.00
[2024-01-22] MEDS: KCL 270 MEQ IV (05:17)
[2024-01-22] MEDS: ZENPEP DELAYED RELEASE CAPSULE 2 CAPSULE PO ×2 (08:51→16:53)
[2024-01-22] MEDS: FEOSOL 325 MG PO (08:52)
[2024-01-22] MEDS: ZOLOFT 25 MG PO (08:52)
[2024-01-22] MEDS: ROXICODONE 5 MG PO ×3 (08:52→20:54)
[2024-01-22] MEDS: VITAMIN D3 (cholecalciferol) 125 MCG PO (08:52)
[2024-01-22] MEDS: ZITHROMAX INFUSION 250 IV (08:52)
[2024-01-22] MEDS: LIDOCAINE 4% PATCH 1 PATCH TOPICAL (08:53)
--- NOTE | 2024-01-22 09:41 | PTOTSP ---
Speech Therapy Swallowing Assessment
Patient demonstrated some difficulty with efficient mastication and complete oral clearance that may have been impacted by xerostomia. However, cognition may also be factor. No gross signs of aspiration during bedside assessment, but cannot rule out
silent aspiration.
Recommend
1. Initiate IDDSI level 5 (Minced and moist) and Thin liquids
2. Upright during meals
3. Meds whole in applesauce as this is her baseline method. Can give with liquid as needed and tolerated.
4. Remain upright for 30 minutes after meals given history of GERD.
5. ST will follow to ensure safety with diet, advance diet as indicated and determine need for VSE.
--- NOTE | 2024-01-22 10:32 | W.PN.ID1 ---
Date of Service
Date of Service: January 22, 2024
Today's Communication
Continue cefepime/azithromycin.
Assessment / Plan
#R PNA
# Symptomatic UTI
# Septic shock on pressor
- Follow blood cx's, Ucx
- Continue azithromycin and cefepime (d2)
-trend wbc, vitals
#Additional Past Medical History:
HFpEF
BLE lymphedema
Afib
PPM
Pulm HTN
BRITTON, not on CPAP
UTI
remote hx C. diff
nephrolithiasis hx lithotripsy/stents
bladder stimulator
choledochojejunostomy
appendectomy
L TKR
L4-L5 laminectomy
Chief Complaint
-: Pneumonia
Subjective / Review of Systems
Continues to cough. No sputum. Feels weak. Right knee better.
Vital Signs / Physical Exam
Vital Signs
Vital Signs
Temp Pulse Resp BP Pulse Ox
97.7 F 75 14 102/91 96
01/22/24 07:30 01/22/24 07:45 01/22/24 07:45 01/22/24 07:30 01/22/24 07:45
Physical Exam
Constitutional: Acutely Ill
Pulmonary: Coarse (right base)
Gastrointestinal: Soft, Non Tender and Non Distended
Genito-Urinary: Negative CVA Tenderness
Extremities: Negative Edema
Lines: PICC (RUE intact)
Objective Data
Lab Data
Lab Results
01/22/24 03:26
01/22/24 03:26
PT 50.3 Sec (11.4-14.6) H 01/22/24 03:26
INR 5.49 H* 01/22/24 03:26
APTT 50.1 Sec (23.4-35.0) H 01/22/24 03:26
APTT Cancelled 01/22/24 03:26
Estimated Creat Clear 53 ml/min 01/22/24 03:26
Lactic Acid Cancelled 01/21/24 16:00
Total Bilirubin 1.1 mg/dl (0.2-1.3) 01/22/24 03:26
AST 35 U/L (14-36) 01/22/24 03:26
ALT 19 U/L (0-35) 01/22/24 03:26
Alkaline Phosphatase 133 U/L (38-126) H 01/22/24 03:26
Most recent labs reviewed.
Micro Results:
01/21/24 13:48 Streptococcus Screen (MIRACLE) - Preliminary
Throat/Pharynx Culture in Progress
Streptococcus Rapid Screen - Final
Rapid Strep Screen (Group A) Negative
01/21/24 20:40 MRSA Screen - Pending
Nose
01/21/24 10:38 Legionella Urinary Antigen - Final
Urine Negative for Legionella pneumophila Serogroup 1 antigen.
A negative result does not rule out the possiblity of
Legionella infection due to other serogroups or species of
Legionella. Clinical correlation is recommended.
Streptococcus pneumoniae Antigen (M - Final
Negative for Streptococcus pneumoniae antigen.
A negative result does not exclude infection with
Streptococcus pneumoniae. Clinical correlation is
recommended.
01/21/24 13:46 Blood Culture - Pending
Blood/Venous
01/21/24 13:04 Blood Culture - Pending
Blood/Venous
01/21/24 10:38 Urine Culture - Pending
Urine
01/21/24 CXR: Right basilar airspace opacity likely within the right lower lobe suspicious for pneumonia. Atelectasis is the alternative consideration.
[2024-01-22] MEDS: ELIQUIS 5 MG PO ×2 (11:09→20:54)
--- NOTE | 2024-01-22 11:16 | W.PN.HOSP.TC ---
Today's Communication/Plan
-
monitor vitals
see plan
cw levophed; wean as tolerated
monitor INR
cw abx
follow cultures
Assessment / Plan
Assessment / Plan
General: No Apparent Distress, Comfortable
HEENT: NormoCephalic, Anicteric, mild pharyngeal erythema
Respiratory: Clear; No Wheezes, Rales or Rhonchi
Cardiac: S1/S2, irregular irregular
Breast: Deferred by me
GI: Soft, Non Tender, Non Distended, Normal Bowel Sounds and No Hepatosplenomegaly
Rectal: Deferred by Provider
Genito-urinary: no rinaldi
Musculoskeletal: No edema, open blood blister left mid tib-fib, closed blood blister below that area no surrounding erythema)
Neuro: Awake, Alert, Oriented (To name, daughter, place but not year or history chronic moderate memory impairment per daughter), Nonfocal/grossly intact
Psych: Calm
Septic shock 2/2 right basilar PNA and UTI
#Hx COVID October 2023
WBC 28, 91% RA, 98.1, HR 70
-speech following; on IDD5 diet with thin
bcx pending
probnp high
cw abx per ID
ID following
didnt respond much to fluid; started levophed 01/20
Strep, Legionella negative
procal 0.49
follow urine cx
#Hyponatremia
Na now 129
monitor
#Hypokalemia
improving
#Left lower extremity open blister, with below blood blister
#Chronic peripheral edema with peripheral neuropathy
-Consult wound care
#Chronic back pain/shoulder pain
-Continue oxycodone 5 mg 3 times daily hold for sedation
#Hx C. difficile
-Monitor for any diarrhea
#Chronic urinary incontinence
#Bladder stimulator January 2014
-Positive pyuria will follow urine culture
#Chronic memory impairment�moderate not formally diagnosed
#Depression-New diagnosis 2 weeks ago
cw zoloft for now; if sodium becomes an issue then this needs to be stopped
#Pacemaker-bradycardia
#Permanent A-fib
-Follow CBC cardiology
-Hold metoprolol
-Continue digoxin 62.5 mcg with hold parameters
-Continue Eliquis
#Chronic diastolic CHF�no acute exacerbation
I/O, daily weights
-Hold current Lasix, spironolactone due to hypotension
2D echo 07/24/2022: EF 50-55%, normal LVS LVSF, diastolic function indeterminate due to A-fib, pacemaker wire seen, severe left atrial dilation no valvular issues no evidence of pulm HTN
#Sleep apnea hx
-Used to use machine but no longer has use in the past several years
Supratherapeutic INR
no bleeding; unclear reason
monitor
#History of resection secondary to adhesions
# GERD
-No PPI listed
#Pancreatic insufficiency
-Continue Zenpep twice daily
#Chronic ambulatory dysfunction
Uses walker to wheelchair max assist to
#Chronic right shoulder pain with limited range of motion to shoulder level
-Continue lidocaine patch right shoulder
# Suspect anemia of chronic disease
does have iron deficiency
-Continue Feosol
#Insomnia
#Obesity due to excess calorie consumption
DVT prophylaxis
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
DNR per daughter Theresa at bedside
I spent a total of 52 minutes with the patient or on the floor. More than 50% of this time involved counseling and coordination of care.
Anticipated Discharge: > 48 hours
Subjective/Interval History
-
Date of Service: January 22, 2024
denies nausea
Objective Data
-
Labs:
Laboratory Results
01/22/24 01/22/24
03:26 03:26
WBC 28.0 H
Hgb 10.1 L
Hct 29.9 L
Plt Count 414 H
PT 50.3 H
INR 5.49 H*
APTT 50.1 H Cancelled
Sodium 129 L
Potassium 3.6
Chloride 100
Carbon Dioxide 19 L
BUN 41 H
Creatinine 0.8
Glucose 84
Calcium 8.4
Total Bilirubin 1.1
AST 35
ALT 19
Alkaline Phosphatase 133 H
Vital Signs:
Vital Signs
Temp Pulse Resp BP Pulse Ox
97.7 F 74 14 75/51 97
01/22/24 07:30 01/22/24 10:45 01/22/24 10:45 01/22/24 10:35 01/22/24 10:45
I&O
01/21/24 01/22/24 01/23/24
06:59 06:59 06:59
Intake Total 1267.5 / 1342.5 646.0 / 646.0
Output Total 1125 / 1125
Balance 142.5 / 217.5 646.0 / 646.0
--- NOTE | 2024-01-22 12:30 | W.PN.INTV ---
Today's Communication / Plan
Recommendations
Continue current antibiotic
Wean off Levophed
Repeat PT and INR tomorrow.
Follow cultures
Diet as tolerated
Maintain ICU level of care until Levophed is weaned off.
Assessment
-
Patient is a 78-year-old female with past medical history of cognitive decline, permanent atrial fibrillation, SSS s/p pacemaker, chronic diastolic CHF, GERD, hypertension, sleep apnea presenting to ER with confusion and decreased appetite.
Chest x-ray obtained indicating RLL consolidation possible PNA. UA also positive for nitrites/LE/many bacteria. She was also noted to be hypotensive, given IVFs wtih no improvement, likely to require pressors. She is admitted to ICU for possible
septic shock.
Septic shock s/p IVFs
Left lower extremity cellulitis
UTI/ possible right lower lobe pneumonia
Leukocytosis
Decreased oral intake/FTT/temporal wasting
Mild transaminitis
Acute HFpEF suspected, proBNP 4140
Hyponatremia
Hypokalemia
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
Chronic cystitis
Chronic pain syndrome
GERD
Essential hypertension
Paroxysmal Atrial Fibrillation/SSS s/p PPM
Chronic heart failure with preserved ejection fraction
Osteoarthritis
s/p MELISSA-BSO at 37 yo c/b Pseudomonas wound infection
Ovarian cyst rupture, infection-laparotomy as teenager
History of complications from open cholecystectomy-choledochojejunostomy
Varicose Veins/Insufficiency
History of GI bleeding-Hospitalization
Appendicitis s/p Appendectomy
History of C.diff-vanc PO x 2 yrs (2006)
Pulmonary Hypertension
Nephrolithiasis s/p lithotripsy/stent
TIA (2012)
Degenerative disc apapeqx-gpszmf-sizgzdsbfbq-L4/5
Breast lumps s/p b/l-lumpectomy left, benign
Obstructive Sleep [place] C-PAP w/O2
Lymphedema
hx stroke
DM 2
Hepatitis
Pseudogout in right wrist
Colon polyps
Hx L Medial tibial plateau fx s/p L knee replacement 09/2021
Chronic Pancreatitis
Anemia
hx COVID19
Plan
Remains on low-dose vasopressors.
Mental status appears to be baseline, trying to eat lunch independently.
Hemodynamically unstable
On low-dose vasopressors-Levophed 2 mics per minute. Hopefully can wean off.
-
Cardiac history reviewed--HTN, CHF, Afib/SSS s/p PPM
Prior ECHO reviewed indicating normal function in 2021, would need repeat study
proBNP 4140, suggesting component of volume
Hold home meds while hypotensive
Eventual diuresis.
-
Oxygen needs: stable on room air
Prior history of lung disease: none
Supplemental O2 as indicated to maintain sats > 89%
CXR/CT reviewed indicating RLL opacity, fluid vs aspiration
-
Continue antibiotics to cover for pneumonia.
Currently on cefepime/azithromycin Will transition to oral tomorrow in AM.
-
Continue p.o. diet with aspiration precautions.
Decreased PO intake/appears there is protein calorie malnutrition
Mobile Phone Salesperson recommendations
Aspiration precautions, HOB > 30 degrees
-
Fever and increased WBC on presentation
Multiple sites of infection: UTI/pneumonia/cellulitis of the left lower extremity.
Persistent leukocytosis noted. 28,000.
Afebrile
-
Started on empiric antibiotics-cefepime/azithromycin.
Cultures negative so far.
-
Mild hyponatremia noted, slowly improving.
Nongap metabolic acidosis, likely post normal saline infusion.
Continue with supportive care.
-
H/o diabetes, can continue on home meds, SS for coverage
-
DVT prophylaxis on apixaban.
INR elevated, repeat tomorrow. Monitor for bleeding.
-
DNR status noted.
-
Dr. Solorzano updated family at the bedside 01/22/2024.

Diagnostic Data
Chest X-Ray: 01/21/24- Right basilar airspace opacity likely within the right lower lobe suspicious for pneumonia. Atelectasis is the alternative consideration.
CT Scan: AP 02/11/21- 1. No acute abnormality identified within the abdomen or pelvis.
2. Trace left pleural effusion.
3. Stable postsurgical findings related to prior choledochojejunostomy and small bowel resection/anastomosis. No evidence for small bowel obstruction. Moderate volume of stool within the colon including within the rectum.
4. Atrophic/calcified pancreas compatible with chronic pancreatitis.
Echo: 07/24/22- Normal left ventricular chamber size with mild concentric remodeling. Normal left ventricular systolic function. Left ventricular ejection fraction is 50- 55% by Avelar's method. Diastolic function indeterminate due to atrial
fibrillation. Normal right ventricular size and function. Pacer wire seen. Severe left atrial dilation. Aortic sclerosis without stenosis. No other significant valve abnormalities were observed. No evidence of pulmonary hypertension.
PFT's:
Reports and relevant images were personally reviewed.
-----
Subjective Dataa
Subjective Data
Date of Service:
Date of Service: January 22, 2024
Chief Complaint: Platemaker Follow Up (Septic shock)
Subjective:
Currently denies any discomfort.
Trying to eat lunch on her own.
Denies nausea or vomiting.
Denies abdominal pain
Review of Systems
Cardiopulmonary: Dyspnea (n) and Dyspnea on Exertion (n)
GI: Abdominal Pain (n)
Objective Data
Data Reviewed
Vital Signs / I&O / Oxygen:
Vital Signs
Temp Pulse Resp BP Pulse Ox
97.4 F 74 14 75/51 97
01/22/24 11:09 01/22/24 10:45 01/22/24 10:45 01/22/24 10:35 01/22/24 10:45
Intake and Output
01/21/24 01/22/24 01/23/24
06:59 06:59 06:59
Intake Total 1267.5 / 1342.5 653.5 / 653.5
Output Total 1125 / 1125 400 / 400
Balance 142.5 / 217.5 253.5 / 253.5
SaO2 97
Physical Exam
General: Respiratory Distress (n) and Comfortable
HEENT: Normocephalic
Cardiovascular: S1-S2
Respiratory: Clear and Non-Labored Respirations
GI: Soft and Non Distended
Neurology: Awake and Alert
Skin: Warm and Other (open blood blister left mid tib-fib, closed blood blister below that area no surrounding erythema))
Labs/Micro/Reports
Lab Data
01/22/24 03:26
01/22/24 03:26
Laboratory Results
01/22/24 01/22/24
03:26 03:26
PT 50.3 H
INR 5.49 H*
APTT 50.1 H Cancelled
Microbiology
01/21/24 10:38 Urine Urine Culture - Final
01/21/24 13:48 Throat/Pharynx Streptococcus Screen ([facility]) - Preliminary
Culture in Progress
01/21/24 13:48 Throat/Pharynx Streptococcus Rapid Screen - Final
Rapid Strep Screen (Group A) Negative
01/21/24 10:38 Urine Legionella Urinary Antigen - Final
Negative for Legionella pneumophila Serogroup 1 antigen.
A negative result does not rule out the possiblity of
Legionella infection due to other serogroups or species of
Legionella. Clinical correlation is recommended.
01/21/24 10:38 Urine Streptococcus pneumoniae Antigen (M - Final
Negative for Streptococcus pneumoniae antigen.
A negative result does not exclude infection with
Streptococcus pneumoniae. Clinical correlation is
recommended.
[2024-01-22 14:23] LABS: NT-proBNP 4330 pg/ml
[2024-01-22] MEDS: LANOXIN 62.5 MCG PO (14:44)
--- NOTE | 2024-01-22 15:15 | CM ---
CM following re: discharge planning.
Discussed in rounds, reviewed pt's chart, met with pt and pt's friend Adenike at bedside, .
Pt is a 78 year old female, admitted with primary dx of Septic shock due to PNA.
Pt is not a great historian, information obtained from pt's friend Adenike. 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 Pt has 3 supportive children.
PCP: Manuel Pimentel
Pharmacy: [facility].
D/C plan: return back to [facility] for a terminal clerk care.
CM will follow with discharge plan updates as hospitalization progresses
--- NOTE | 2024-01-22 17:56 | PTCARENOTE ---
Pt AAOx2. Sleeping on and off throughout the day.
Attempted to wean off Levophed, BP dropped to 70-80s/50-60s.
Afib with Vpaced beats.
SpO2 93-98% on room air.
Very poor appetite.
Small BM.
Demi urine via purewick.
All other assessments unchanged for 1200 and 1600
[2024-01-22] MEDS: LEVOPHED 250 IV (18:40)
--- NOTE | 2024-01-22 20:30 | PTCARENOTE ---
Rec'd care of patient at 1900. VSS. Levophed @ 1 mcg/min. Titrating for SBP>90. Patient resting comfortably. No complaints. Full assessment and care as charted on worklist.
[2024-01-22] MEDS: MELATONIN 5 MG PO (20:54)
[2024-01-22] MEDS: MELATONIN 3 MG PO (20:54)
[2024-01-23] VITALS (37 sets, daily range): BP systolic 85–119; BP diastolic 59–88; PULSE 99–103; BMI 26.3
--- NOTE | 2024-01-23 01:00 | PTCARENOTE ---
No changes in assessment. Levophed gtt order changed to titrate for MAP>65. VSS.
[2024-01-23] MEDS: MAXIPIME 2000 MG IV ×2 (03:51→17:25)
[2024-01-23] MEDS: STERILE WATER FOR INJECTION 10 ML IV ×2 (03:51→17:25)
[2024-01-23 04:06] LABS: % Basophils 0.2 % (0-2); % Eosinophils 0.4 % (0-6); % Immature Granulocytes 1.1 % (0-0.5); % Lymphocytes 8.7 % (20.5-51.1); % Monocytes 5.7 % (1.7-9.3); % Neutrophils 83.9 % (42.2-75.2); Absolute Eosinophils 0.1 10^3/uL (0-0.7); Absolute Immature Granulocytes 0.2 10^3/uL (0-0.05); Absolute Lymphocytes 1.4 10^3/uL (1.2-3.4); Absolute Monocytes 0.9 10^3/uL (0.1-0.6); Absolute Neutrophils 13.4 10^3/uL (1.4-6.5); Hematocrit 29.5 % (37.0-47.0); Mean Corp Hgb Conc. 33.9 g/dL (33.0-37.0); Mean Corpuscular Hgb 31.6 pg (27.0-31.0); Mean Corpuscular Volume 93.4 fL (81.0-99.0); Nucleated Red Blood Cells % 0 %; Platelet Count 341 10^3/uL (130-400); Red Blood Cell Count 3.16 10^6/uL (4.20-5.40); Red Cell Dist. Width 13.8 % (11.5-14.5); White Blood Cell Count 15.9 10^3/uL (4.8-10.8)
--- NOTE | 2024-01-23 04:20 | PTCARENOTE ---
Levophed gtt remains off since 0300. Vitals stable. AM labs sent.
[2024-01-23 04:24] LABS: APTT 50.3 Sec (23.4-35.0); INR 4.74; PT 44.7 Sec (11.4-14.6)
[2024-01-23 04:46] LABS: ALT (SGPT) 18 U/L (0-35); AST (SGOT) 27 U/L (14-36); Albumin 2.3 g/dl (3.5-5.0); Alkaline Phosphatase 137 U/L (38-126); Blood Urea Nitrogen 35 mg/dl (7-17); Calcium 8.8 mg/dl (8.4-10.2); Carbon Dioxide 21 mmol/L (22-30); Chloride 99 mmol/L (98-107); Estimated Creatinine Clearance 47 ml/min; Glucose 81 mg/dl (70-99); Potassium 3.6 mmol/L (3.5-5.1); Sodium 130 mmol/L (135-145); Total Bilirubin 0.9 mg/dl (0.2-1.3); Total Protein 5.2 g/dl (6.3-8.2); eGFR > 60.00
[2024-01-23] MEDS: ROXICODONE 5 MG PO ×2 (08:25→17:26)
[2024-01-23] MEDS: FEOSOL 325 MG PO (08:25)
[2024-01-23] MEDS: ELIQUIS 5 MG PO ×2 (08:25→21:15)
[2024-01-23] MEDS: VITAMIN D3 (cholecalciferol) 125 MCG PO (08:25)
[2024-01-23] MEDS: ZITHROMAX INFUSION 250 IV (08:26)
[2024-01-23] MEDS: ZOLOFT 25 MG PO (08:26)
[2024-01-23] MEDS: LIDOCAINE 4% PATCH 1 PATCH TOPICAL (08:26)
[2024-01-23] MEDS: ZENPEP DELAYED RELEASE CAPSULE 2 CAPSULE PO ×2 (08:26→17:25)
[2024-01-23] MEDS: ProAmatine 5 MG PO ×3 (10:12→17:25)
--- NOTE | 2024-01-23 10:50 | W.PN.HOSP.TC ---
Today's Communication/Plan
-
Trend INR
IV antibiotic
Monitor mentation
Start midodrine
Crozer and ID rec
Can transfer out of ICU
Assessment / Plan
Assessment / Plan
General: No Apparent Distress, Comfortable
HEENT: NormoCephalic, Anicteric, mild pharyngeal erythema
Respiratory: Clear; No Wheezes, Rales or Rhonchi
Cardiac: S1/S2, irregular irregular
Breast: Deferred by me
GI: Soft, Non Tender, Non Distended, Normal Bowel Sounds and No Hepatosplenomegaly
Rectal: Deferred by Provider
Genito-urinary: no rinaldi
Musculoskeletal: No edema, open blood blister left mid tib-fib, closed blood blister below that area no surrounding erythema)
Neuro: Awake, Alert, Oriented (To name, daughter, place but not year or history chronic moderate memory impairment per daughter), Nonfocal/grossly intact
Psych: Calm
Septic shock 2/2 right basilar PNA
#Hx COVID October 2023
WBC 28, 91% RA, 98.1, HR 70
-speech following; on IDD5 diet with thin
bcx pending negative so far
probnp high
cw abx per ID on cefepime and azithromycin. Monitor mentation with cefepime.
ID following
didnt respond much to fluid; started levophed 01/20 and weaned off overnight
Start standing midodrine. Blood pressure stabilized to 104/68
Strep, Legionella negative
procal 0.49
follow urine cx mixed darcie.
WBC downtrending
#Hyponatremia
Na now 130
monitor
#Hypokalemia
improving
#Left lower extremity open blister, with below blood blister
#Chronic peripheral edema with peripheral neuropathy
-Consult wound care
#Chronic back pain/shoulder pain
-Continue oxycodone 5 mg 3 times daily hold for sedation
#Hx C. difficile
-Monitor for any diarrhea
#Chronic urinary incontinence
#Bladder stimulator January 2014
-Positive pyuria will follow urine culture
#Chronic memory impairment�moderate not formally diagnosed
#Depression-New diagnosis 2 weeks ago
cw zoloft for now; if sodium becomes an issue then this needs to be stopped
#Pacemaker-bradycardia
#Permanent A-fib
-Follow CBC cardiology
-Hold metoprolol
-Continue digoxin 62.5 mcg with hold parameters
-Continue Eliquis need to consider holding as with supratherapeutic INR
#Chronic diastolic CHF�no acute exacerbation
I/O, daily weights
-Hold current Lasix, spironolactone due to hypotension
2D echo 07/24/2022: EF 50-55%, normal LVS LVSF, diastolic function indeterminate due to A-fib, pacemaker wire seen, severe left atrial dilation no valvular issues no evidence of pulm HTN
#Sleep apnea hx
-Used to use machine but no longer has use in the past several years
Supratherapeutic INR
no bleeding; unclear reason. Coagulopathy due to sepsis
monitor
INR downtrending to 4.7. No luminal bleeding noted. Monitor hemoglobin. Has remained without significant drop so far
Fall precaution
#History of resection secondary to adhesions
# GERD
-No PPI listed
#Pancreatic insufficiency
-Continue Zenpep twice daily
#Chronic ambulatory dysfunction
Uses walker to wheelchair max assist to
#Chronic right shoulder pain with limited range of motion to shoulder level
-Continue lidocaine patch right shoulder
# Suspect anemia of chronic disease
does have iron deficiency
-Continue Feosol
#Insomnia
#Obesity due to excess calorie consumption
DVT prophylaxis supratherapeutic INR and Eliquis
DNR
I spent a total of 53 minutes with the patient or on the floor. More than 50% of this time involved counseling and coordination of care.
Anticipated Discharge: > 48 hours
Subjective/Interval History
-
Date of Service: January 23, 2024
Afebrile
Levophed has been weaned off
Awake.
Trying to eat breakfast
Objective Data
-
Labs:
Laboratory Results
01/23/24
03:59
WBC 15.9 H
Hgb 10.0 L
Hct 29.5 L
Plt Count 341
PT 44.7 H
INR 4.74
APTT 50.3 H
Sodium 130 L
Potassium 3.6
Chloride 99
Carbon Dioxide 21 L
BUN 35 H
Creatinine 0.8
Glucose 81
Calcium 8.8
Total Bilirubin 0.9
AST 27
ALT 18
Alkaline Phosphatase 137 H
Vital Signs:
Vital Signs
Temp Pulse Resp BP Pulse Ox
97.5 F 87 16 104/68 94
01/23/24 07:40 01/23/24 06:00 01/23/24 06:00 01/23/24 06:00 01/23/24 06:00
I&O
01/22/24 01/23/24 01/24/24
06:59 06:59 06:59
Intake Total 1267.5 / 1342.5 1049.8 / 1049.8
Output Total 1125 / 1125 1250 / 1250
Balance 142.5 / 217.5 -200.2 / -200.2
Data Reviewed
-
Total Time Spent with Patient (in minutes): 55
--- NOTE | 2024-01-23 12:26 | PN.CDI ---
CDI
- -
CDI:
Physician Documentation Request
Admit Date: 01/21/24 13:51
Dear Doctor Georgina,
Clinical Indicators:
Patient admitted with sepsis due to PNA.
/2 Window Clerk PN, 'Acute HFpEF suspected...'
01/22 PN,'Chronic diastolic CHF�no acute exacerbation'
pro-BNP trend:
01/21/24 01/22/24
13:04 03:26
Enj-P-Ojebjjstqaq Pept 4140 4330
Due to potentially conflicting documentation, please clarify the acuity of the HFpEF:
Acute on chronic HFpEF
Chronic HFpEF only
Other, please specify
Use of terms such as suspected, likely, concern for, or probable (associated with a specific diagnosis that is being evaluated, monitored, or treated as if it exists) are acceptable and can be coded in the inpatient setting, when documented at the
time of discharge.
Thank you,
LILI Chong RN
CDI Specialist
available via tiger text
Please use your independent medical judgment in providing your response.
[2024-01-23] MEDS: ROXICODONE PO (12:27)
--- NOTE | 2024-01-23 13:57 | W.PN.ID1 ---
Date of Service
Date of Service: January 23, 2024
Today's Communication
Continue abx's.
Assessment / Plan
#R PNA
# s/p Septic shock off pressor
# Leukocytosis trending down
-Blood cx's neg to date.
-Ucx: contaminant
- Continue azithromycin (change to po) and cefepime (d3)
-trend wbc
#Additional Past Medical History:
HFpEF
BLE lymphedema
Afib
PPM
Pulm HTN
[place], not on CPAP
UTI
remote hx C. diff
nephrolithiasis hx lithotripsy/stents
bladder stimulator
choledochojejunostomy
appendectomy
L TKR
L4-L5 laminectomy
Chief Complaint
-: Pneumonia
Subjective / Review of Systems
More alert today. Feeling better.
Still with cough, nonproductive.
Vital Signs / Physical Exam
Vital Signs
Vital Signs
Temp Pulse Resp BP Pulse Ox
97.5 F 81 17 112/76 93
01/23/24 11:21 01/23/24 12:15 01/23/24 12:15 01/23/24 12:00 01/23/24 07:30
Physical Exam
Constitutional: No Acute Distress
Cardiovascular: Regular Rate and S1/S2
Pulmonary: Coarse (bases) and Non Labored
Gastrointestinal: Soft and Non Tender
Neurological: AO x 3
Objective Data
Lab Data
Lab Results
01/23/24 03:59
01/23/24 03:59
PT 44.7 Sec (11.4-14.6) H 01/23/24 03:59
INR 4.74 01/23/24 03:59
APTT 50.3 Sec (23.4-35.0) H 01/23/24 03:59
Estimated Creat Clear 47 ml/min 01/23/24 03:59
Lactic Acid Cancelled 01/21/24 16:00
Total Bilirubin 0.9 mg/dl (0.2-1.3) 01/23/24 03:59
AST 27 U/L (14-36) 01/23/24 03:59
ALT 18 U/L (0-35) 01/23/24 03:59
Alkaline Phosphatase 137 U/L (38-126) H 01/23/24 03:59
Most recent labs reviewed.
Micro Results:
01/21/24 13:46 Blood Culture - Preliminary
Blood/Venous No Growth in 48 hours- Final report to follow
01/21/24 13:04 Blood Culture - Preliminary
Blood/Venous No Growth in 48 hours- Final report to follow
01/21/24 13:48 Streptococcus Screen ([facility]) - Final
Throat/Pharynx No Beta Hemolytic Streptococci Isolated
Streptococcus Rapid Screen - Final
Rapid Strep Screen (Group A) Negative
01/21/24 20:40 MRSA Screen - Final
Nose No Methicillin Resistant Staphylococcus aureus isolated.
01/21/24 10:38 Urine Culture - Final
Urine
01/21/24 10:38 Legionella Urinary Antigen - Final
Urine Negative for Legionella pneumophila Serogroup 1 antigen.
A negative result does not rule out the possiblity of
Legionella infection due to other serogroups or species of
Legionella. Clinical correlation is recommended.
Streptococcus pneumoniae Antigen (M - Final
Negative for Streptococcus pneumoniae antigen.
A negative result does not exclude infection with
Streptococcus pneumoniae. Clinical correlation is
recommended.
01/21/24 CXR: Right basilar airspace opacity likely within the right lower lobe suspicious for pneumonia. Atelectasis is the alternative consideration.
--- NOTE | 2024-01-23 14:08 | CM ---
Addendum entered by Samuel Dykes 01/23/24 14:57:
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
A referral to [facility] made. Awaiting for determination.
If [facility] will not accept the pt then pt will return back to [facility] for a senior living care.
Original Note:
CM following re: discharge planning.
Reviewed pt's chart, met with pt. Pt's daughter Theresa and pt's son Micha at bedside.
Both pt's daughter and pt's son asked for information regarding transferring the pt from one SNF to another for a LTC. Information provided. Both pt's son and pt's daughter stated they do not have a preferred new SNF yet and they stated that they
kind of OK with [facility]. Per daughter she comes almost every day to check on her mother at [facility] and she feels that [facility] staff can do better care. CM advised pt's son and pt's daughter to find a preferred SNF first and after working on
transition to make sure they got a SNF they want. Both pt's daughter and pt's son expressed their understanding and agreement. Both pt's daughter and pt's son asked for [facility] and they were notified that [facility] has a waiting list for accepting pt for a
senior living care. Pt's daughter stated she will visit [facility] to complete an application for a senior living care.
At this point both pt's son and pt's daughter agree that pt will return back to [facility] for a senior living care and they will be working with [facility] on a possible transfer.
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
CM will follow to assist pt with discharge plan updates as hospitalization progresses
--- NOTE | 2024-01-23 14:43 | W.PN.INTV ---
Today's Communication / Plan
Recommendations
Continue antibiotics
Eventual diuresis
Follow cultures
Increase activity as able
Vasopressors have been discontinued
Has been transferred out of the ICU
Sign off
Assessment
-
Patient is a 78-year-old female with past medical history of cognitive decline, permanent atrial fibrillation, SSS s/p pacemaker, chronic diastolic CHF, GERD, hypertension, sleep apnea presenting to ER with confusion and decreased appetite.
Chest x-ray obtained indicating RLL consolidation possible PNA. UA also positive for nitrites/LE/many bacteria. She was also noted to be hypotensive, given IVFs wtih no improvement, likely to require pressors. She is admitted to ICU for possible
septic shock.
Septic shock s/p IVFs
Left lower extremity cellulitis
UTI/ possible right lower lobe pneumonia
Leukocytosis
Decreased oral intake/FTT/temporal wasting
Mild transaminitis
Acute HFpEF suspected, proBNP 4140
Hyponatremia
Hypokalemia
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
Chronic cystitis
Chronic pain syndrome
GERD
Essential hypertension
Paroxysmal Atrial Fibrillation/SSS s/p PPM
Chronic heart failure with preserved ejection fraction
Osteoarthritis
s/p MELISSA-BSO at 37 yo c/b Pseudomonas wound infection
Ovarian cyst rupture, infection-laparotomy as teenager
History of complications from open cholecystectomy-choledochojejunostomy
Varicose Veins/Insufficiency
History of GI bleeding-Hospitalization
Appendicitis s/p Appendectomy
History of C.diff-vanc PO x 2 yrs (2006)
Pulmonary Hypertension
Nephrolithiasis s/p lithotripsy/stent
TIA (2012)
Degenerative disc pbrtyan-bcwauv-nflygmetorf-L4/5
Breast lumps s/p b/l-lumpectomy left, benign
Obstructive Sleep [place] C-PAP w/O2
Lymphedema
hx stroke
DM 2
Hepatitis
Pseudogout in right wrist
Colon polyps
Hx L Medial tibial plateau fx s/p L knee replacement 09/2021
Chronic Pancreatitis
Anemia
hx COVID19
Plan
Improve hemodynamics
Vasopressors have been discontinued
Afebrile
Normal renal function
lactic acid has cleared
-
Cardiac history reviewed--HTN, CHF, Afib/SSS s/p PPM
Prior ECHO reviewed indicating normal function in 2021, would need repeat study
proBNP 4140, suggesting component of volume
Hold home meds while hypotensive
Eventual diuresis.
-
Oxygen needs: stable on room air
Prior history of lung disease: none
CXR/CT reviewed indicating RLL opacity, fluid vs aspiration
-
Fever and increased WBC on presentation
Multiple sites of infection: UTI/pneumonia/cellulitis of the left lower extremity.
Leukocytosis improved
Afebrile
Continue antibiotics to cover for pneumonia.
Cultures negative so far
Continue antibiotics per infectious disease.
-
Continue p.o. diet with aspiration precautions.
-
Mild hyponatremia noted, slowly improving.
Nongap metabolic acidosis, likely post normal saline infusion.
Continue with supportive care.
-
H/o diabetes, can continue on home meds, SS for coverage
-
DVT prophylaxis on apixaban.
INR elevated, repeat tomorrow. Monitor for bleeding.
-
DNR status noted.
-
Dr. Solorzano updated family at the bedside 01/22/2024.
No additional critical care needs.
Critical care team will sign off. Please call with questions.

Diagnostic Data
Chest X-Ray: 01/21/24- Right basilar airspace opacity likely within the right lower lobe suspicious for pneumonia. Atelectasis is the alternative consideration.
CT Scan: AP 02/11/21- 1. No acute abnormality identified within the abdomen or pelvis.
2. Trace left pleural effusion.
3. Stable postsurgical findings related to prior choledochojejunostomy and small bowel resection/anastomosis. No evidence for small bowel obstruction. Moderate volume of stool within the colon including within the rectum.
4. Atrophic/calcified pancreas compatible with chronic pancreatitis.
Echo: 07/24/22- Normal left ventricular chamber size with mild concentric remodeling. Normal left ventricular systolic function. Left ventricular ejection fraction is 50- 55% by Avelar's method. Diastolic function indeterminate due to atrial
fibrillation. Normal right ventricular size and function. Pacer wire seen. Severe left atrial dilation. Aortic sclerosis without stenosis. No other significant valve abnormalities were observed. No evidence of pulmonary hypertension.
PFT's:
Reports and relevant images were personally reviewed.
-----
Subjective Dataa
Subjective Data
Date of Service:
Date of Service: January 23, 2024
Chief Complaint: Dog Track Kennel Manager Follow Up (Septic shock)
Subjective:
Patient offers no new complaints
Afebrile overnight
Hemodynamics improved
Review of Systems
Cardiopulmonary: Dyspnea (n)
GI: Abdominal Pain (n), Nausea (n) and Vomiting (n)
Objective Data
Data Reviewed
Vital Signs / I&O / Oxygen:
Vital Signs
Temp Pulse Resp BP Pulse Ox
97.5 F 81 17 112/76 93
01/23/24 11:21 01/23/24 12:15 01/23/24 12:15 01/23/24 12:00 01/23/24 07:30
Intake and Output
01/22/24 01/23/24 01/24/24
06:59 06:59 06:59
Intake Total 1267.5 / 1342.5 1049.8 / 1049.8 450 / 450
Output Total 1125 / 1125 1250 / 1250 300 / 300
Balance 142.5 / 217.5 -200.2 / -200.2 150 / 150
SaO2 93
Physical Exam
General: Respiratory Distress (n) and Comfortable
HEENT: Normocephalic
Cardiovascular: S1-S2
Respiratory: Clear and Non-Labored Respirations
GI: Soft and Non Distended
Neurology: Awake and Alert
Skin: Warm and Other (open blood blister left mid tib-fib, closed blood blister below that area no surrounding erythema))
Labs/Micro/Reports
Lab Data
01/23/24 03:59
01/23/24 03:59
Laboratory Results
01/23/24
03:59
PT 44.7 H
INR 4.74
APTT 50.3 H
Microbiology
01/21/24 13:46 Blood/Venous Blood Culture - Preliminary
No Growth in 48 hours- Final report to follow
01/21/24 13:04 Blood/Venous Blood Culture - Preliminary
No Growth in 48 hours- Final report to follow
01/21/24 13:48 Throat/Pharynx Streptococcus Screen (M[facility]LE) - Final
No Beta Hemolytic Streptococci Isolated
01/21/24 13:48 Throat/Pharynx Streptococcus Rapid Screen - Final
Rapid Strep Screen (Group A) Negative
01/21/24 20:40 Nose MRSA Screen - Final
No Methicillin Resistant Staphylococcus aureus isolated.
01/21/24 10:38 Urine Urine Culture - Final
01/21/24 10:38 Urine Legionella Urinary Antigen - Final
Negative for Legionella pneumophila Serogroup 1 antigen.
A negative result does not rule out the possiblity of
Legionella infection due to other serogroups or species of
Legionella. Clinical correlation is recommended.
01/21/24 10:38 Urine Streptococcus pneumoniae Antigen (M - Final
Negative for Streptococcus pneumoniae antigen.
A negative result does not exclude infection with
Streptococcus pneumoniae. Clinical correlation is
recommended.
[2024-01-23] MEDS: MELATONIN 5 MG PO (21:15)
[2024-01-23] MEDS: TYLENOL 650 MG PO (21:16)
[2024-01-23] MEDS: MELATONIN 3 MG PO (21:16)
[2024-01-23 21:42] LABS: Glucose - Point of Care 59 mg/dl (70-99)
[2024-01-23 21:57] LABS: Glucose - Point of Care 94 mg/dl (70-99)
[2024-01-23 23:56] LABS: Glucose - Point of Care 195 mg/dl (70-99)
[2024-01-24 03:00] LABS: Glucose - Point of Care 77 mg/dl (70-99)
[2024-01-24] MEDS: MAXIPIME 2000 MG IV ×2 (03:08→17:44)
[2024-01-24] MEDS: STERILE WATER FOR INJECTION 10 ML IV ×2 (03:08→17:45)
[2024-01-24 04:13] VITALS: BP 112/68
[2024-01-24 05:27] VITALS: BMI 26.3
[2024-01-24 05:32] LABS: % Basophils 0.3 % (0-2); % Eosinophils 0.7 % (0-6); % Lymphocytes 15.8 % (20.5-51.1); % Monocytes 6.3 % (1.7-9.3); % Neutrophils 74.9 % (42.2-75.2); Absolute Eosinophils 0.1 10^3/uL (0-0.7); Absolute Immature Granulocytes 0.2 10^3/uL (0-0.05); Absolute Lymphocytes 1.8 10^3/uL (1.2-3.4); Absolute Monocytes 0.7 10^3/uL (0.1-0.6); Absolute Neutrophils 8.5 10^3/uL (1.4-6.5); Hematocrit 29.5 % (37.0-47.0); Hemoglobin 9.7 g/dL (12.0-16.0); Mean Corp Hgb Conc. 32.9 g/dL (33.0-37.0); Mean Corpuscular Hgb 31.2 pg (27.0-31.0); Mean Corpuscular Volume 94.9 fL (81.0-99.0); Mean Platelet Volume 9.2 fL (7.4-10.4); Nucleated Red Blood Cells % 0 %; Platelet Count 321 10^3/uL (130-400); Red Blood Cell Count 3.11 10^6/uL (4.20-5.40); Red Cell Dist. Width 13.9 % (11.5-14.5); White Blood Cell Count 11.3 10^3/uL (4.8-10.8)
[2024-01-24 06:12] LABS: ALT (SGPT) 17 U/L (0-35); AST (SGOT) 25 U/L (14-36); Albumin 2.3 g/dl (3.5-5.0); Alkaline Phosphatase 125 U/L (38-126); Blood Urea Nitrogen 34 mg/dl (7-17); Calcium 8.7 mg/dl (8.4-10.2); Carbon Dioxide 23 mmol/L (22-30); Chloride 99 mmol/L (98-107); Estimated Creatinine Clearance 47 ml/min; Glucose 69 mg/dl (70-99); Potassium 3.6 mmol/L (3.5-5.1); Sodium 131 mmol/L (135-145); Total Protein 5.1 g/dl (6.3-8.2); eGFR > 60.00
[2024-01-24 08:01] VITALS: BP 123/80
[2024-01-24 08:34] LABS: INR 3.92
[2024-01-24] MEDS: FEOSOL 325 MG PO (09:00)
[2024-01-24] MEDS: LIDOCAINE 4% PATCH 1 PATCH TOPICAL (09:00)
[2024-01-24] MEDS: ProAmatine 5 MG PO ×2 (09:00→18:00)
[2024-01-24] MEDS: ELIQUIS 5 MG PO ×2 (09:00→21:02)
[2024-01-24] MEDS: ZITHROMAX 500 MG PO (09:00)
[2024-01-24] MEDS: LANOXIN 62.5 MCG PO (09:00)
[2024-01-24] MEDS: ROXICODONE 5 MG PO ×3 (09:00→17:00)
[2024-01-24] MEDS: ZENPEP DELAYED RELEASE CAPSULE 2 CAPSULE PO ×2 (09:00→17:00)
[2024-01-24] MEDS: VITAMIN D3 (cholecalciferol) 125 MCG PO (09:00)
[2024-01-24] MEDS: ZOLOFT 25 MG PO (09:00)
--- NOTE | 2024-01-24 10:07 | PTOTSP ---
ST Follow-Up
Pt presents with mild to moderate oropharyngeal dysphagia as characterized by impulsive bite/sip size and intake rate, prolonged mastication and bolus formation, reduced bolus formation as evidenced by diffuse oral residue, and inadequate airway
protection as evidenced by weak, wet, congested cough with liquid ingestion.
Recommendations:
- Continue with minced moist solids and regular thin liquids with SINGLE SIPS ONLY and meds whole in puree.
- STRICT aspiration precautions: HOB fully raised, pt must be fully awake/alert for PO intake, full supervision & assistance with PO intake to monitor/ensure single sips are taken, alternate liquids and solids.
- Video fluoroscopic swallow study for further evaluation of swallowing status.
- NATIONAL ACCOUNT DIRECTOR to continue to follow closely.
[2024-01-24 10:58] VITALS: BMI 26.3
--- NOTE | 2024-01-24 11:02 | W.PN.HOSP.TC ---
Today's Communication/Plan
-
Video swallow eval
Continue modified diet
Continue with antibiotic
Restart Lasix at a lower dose
Assessment / Plan
Assessment / Plan
General: No Apparent Distress, Comfortable
HEENT: NormoCephalic, Anicteric, mild pharyngeal erythema
Respiratory: Clear; No Wheezes, Rales or Rhonchi
Cardiac: S1/S2, irregular irregular
Breast: Deferred by me
GI: Soft, Non Tender, Non Distended, Normal Bowel Sounds and No Hepatosplenomegaly
Rectal: Deferred by Provider
Genito-urinary: no rinaldi
Musculoskeletal: No edema, open blood blister left mid tib-fib, closed blood blister below that area no surrounding erythema)
Neuro: Awake, Alert, Oriented (To name, daughter, place but not year or history chronic moderate memory impairment per daughter), Nonfocal/grossly intact
Psych: Calm
Septic shock 2/2 right basilar PNA
#Hx COVID October 2023
WBC 28, 91% RA, 98.1, HR 70
-speech following; on IDD5 diet with thin
bcx pending negative so far
probnp high
cw abx per ID on cefepime and azithromycin. Monitor mentation with cefepime.
ID following
didnt respond much to fluid; started levophed / and weaned off overnight
Start standing midodrine. Blood pressure stabilized
Strep, Legionella negative
procal 0.49
follow urine cx mixed darcie.
WBC downtrending
# Dysphagia
-Continue with modified diet. Discussed with speech recommending video swallow eval today.
#Hyponatremia
Na now 131
monitor
#Hypokalemia
improving
#Left lower extremity open blister, with below blood blister
#Chronic peripheral edema with peripheral neuropathy
-Consult wound care
#Chronic back pain/shoulder pain
-Continue oxycodone 5 mg 3 times daily hold for sedation
#Hx C. difficile
-Monitor for any diarrhea
#Chronic urinary incontinence
#Bladder stimulator January 2014
-Positive pyuria will follow urine culture
#Chronic memory impairment�moderate not formally diagnosed
#Depression-New diagnosis 2 weeks ago
cw zoloft for now; if sodium becomes an issue then this needs to be stopped
#Pacemaker-bradycardia
#Permanent A-fib
-Follow [facility] cardiology
-Hold nebivolol
-Continue digoxin 62.5 mcg with hold parameters
-Continue Eliquis.
# Mild acute on chronic diastolic CHF
I/O, daily weights. proBNP elevated.
-Blood pressure remained stable restart Lasix. Depending on blood pressure could consider restarting Aldactone.
2D echo 07/24/2022: EF 50-55%, normal LVS LVSF, diastolic function indeterminate due to A-fib, pacemaker wire seen, severe left atrial dilation no valvular issues no evidence of pulm HTN
#Sleep apnea hx
-Used to use machine but no longer has use in the past several years
Supratherapeutic INR
no bleeding; unclear reason. Coagulopathy due to sepsis
monitor
INR downtrending to 3.9 No luminal bleeding noted. Monitor hemoglobin. Has remained without significant drop so far
Fall precaution
#History of resection secondary to adhesions
# GERD
-No PPI listed
#Pancreatic insufficiency
-Continue Zenpep twice daily
#Chronic ambulatory dysfunction
Uses walker to wheelchair max assist to
#Chronic right shoulder pain with limited range of motion to shoulder level
-Continue lidocaine patch right shoulder
# Suspect anemia of chronic disease
does have iron deficiency
-Continue Feosol
#Insomnia
#Obesity due to excess calorie consumption
DVT prophylaxis supratherapeutic INR and Eliquis
DNR
Updated daughter over the phone in detail.
Anticipated Discharge: > 48 hours
Subjective/Interval History
-
Date of Service: January 24, 2024
Transfer out of ICU
Blood pressure stabilizing
On IV antibiotics
Objective Data
-
Labs:
Laboratory Results
01/24/24 01/24/24
05:10 07:52
WBC 11.3 H
Hgb 9.7 L
Hct 29.5 L
Plt Count 321
PT 39.0 H
INR 3.92
Sodium 131 L
Potassium 3.6
Chloride 99
Carbon Dioxide 23
BUN 34 H
Creatinine 0.8
Glucose 69 L
Calcium 8.7
Total Bilirubin 1.0
AST 25
ALT 17
Alkaline Phosphatase 125
Vital Signs:
Vital Signs
Temp Pulse Resp BP Pulse Ox
97.3 F 75 18 123/80 97
01/24/24 08:01 01/24/24 08:01 01/24/24 08:01 01/24/24 08:01 01/24/24 08:01
I&O
01/23/24 01/24/24 01/25/24
06:59 06:59 06:59
Intake Total 1049.8 / 1049.8 850 / 850
Output Total 1250 / 1250 450 / 450
Balance -200.2 / -200.2 400 / 400
Data Reviewed
-
Total Time Spent with Patient (in minutes): 55
--- NOTE | 2024-01-24 11:54 | PTOTSP ---
Video Swallow Examination
Patient presents with mild-moderate oral and pharyngeal stages of swallowing. Esophageal sweep revealed retention throughout the esophagus after a liquid wash. Patient had trace but deep laryngeal penetration with thin liquids via cup which
continued with use of a chin tuck strategy. Given concern for an aspiration PNA this admission, consider diet modifications below. Patient has risk factors for top down and bottom up aspiration.
Etiology of dysphagia may be due to documented cognitive decline, prior CVA, and GERD. Please see patient care note for full details of penetration/aspiration and swallowing physiology. Of note, wet coughing was noted which was at times unrelated
to swallowing.
Recommend:
1. IDDSI Level 5 (Minced and Moist), IDDSI Level 2 (Mildly Thick Liquids)
2. Strategies: upright to 90 degrees, must be fully awake/alert for PO intake, small SINGLE sips/bites, alternate liquids and solids to assist with oral/esophageal clearance, remain upright for 30 minutes after eating/drinking
3. FULL supervision and assistance
4. Medications whole in puree
5. Oral care 3x day as a precaution to reduce potential aspiration complications
6. Aspiration Risk Hydration Protocol - single sips of thin liquid water in between meals after oral care with supervision
7. Dysphagia therapy warranted at the acute care level for patient/family education, instruction in compensations. Patient can advance solids as appropriate at the bedside at the discretion of treating FOUNTAIN WAITRESS/WAITER.
[2024-01-24 12:00] VITALS: BP 124/78
[2024-01-24] MEDS: ProAmatine PO (12:00)
[2024-01-24] MEDS: LASIX 40 MG PO (12:00)
--- NOTE | 2024-01-24 12:02 | W.PN.ID1 ---
Date of Service
Date of Service: January 24, 2024
Today's Communication
- Continue azithromycin (change to po) and cefepime (d4)
-Tomorrow can transition to levofloxacin 500 mg po qd through 01/27/24
Assessment / Plan
#R PNA
# s/p Septic shock off pressor
# Leukocytosis resolving
-Blood cx's neg
-Ucx: contaminant
-Video swallow pending
- Continue azithromycin (change to po) and cefepime (d4)
-Tomorrow can transition to levofloxacin 500 mg po qd through 01/27/24
-trend wbc
#Additional Past Medical History:
HFpEF
BLE lymphedema
Afib
PPM
Pulm HTN
[place], not on CPAP
UTI
remote hx C. diff
nephrolithiasis hx lithotripsy/stents
bladder stimulator
choledochojejunostomy
appendectomy
L TKR
L4-L5 laminectomy
Chief Complaint
-: Pneumonia
Subjective / Review of Systems
Overall feels better.
Vital Signs / Physical Exam
Vital Signs
Vital Signs
Temp Pulse Resp BP Pulse Ox
97.3 F 75 18 123/80 97
01/24/24 08:01 01/24/24 08:01 01/24/24 08:01 01/24/24 08:01 01/24/24 08:01
Physical Exam
Constitutional: No Acute Distress
Pulmonary: Other (decreased BS )
Gastrointestinal: Soft and Non Tender
Objective Data
Lab Data
Lab Results
01/24/24 05:10
01/24/24 05:10
PT 39.0 Sec (11.4-14.6) H 01/24/24 07:52
INR 3.92 01/24/24 07:52
APTT 50.3 Sec (23.4-35.0) H 01/23/24 03:59
Estimated Creat Clear 47 ml/min 01/24/24 05:10
Lactic Acid Cancelled 01/21/24 16:00
Total Bilirubin 1.0 mg/dl (0.2-1.3) 01/24/24 05:10
AST 25 U/L (14-36) 01/24/24 05:10
ALT 17 U/L (0-35) 01/24/24 05:10
Alkaline Phosphatase 125 U/L (38-126) 01/24/24 05:10
Most recent labs reviewed.
Micro Results:
01/21/24 13:46 Blood Culture - Preliminary
Blood/Venous No Growth in 48 hours- Final report to follow
01/21/24 13:04 Blood Culture - Preliminary
Blood/Venous No Growth in 48 hours- Final report to follow
01/21/24 13:48 Streptococcus Screen ([facility]LE) - Final
Throat/Pharynx No Beta Hemolytic Streptococci Isolated
Streptococcus Rapid Screen - Final
Rapid Strep Screen (Group A) Negative
01/21/24 20:40 MRSA Screen - Final
Nose No Methicillin Resistant Staphylococcus aureus isolated.
01/21/24 10:38 Urine Culture - Final
Urine
01/21/24 10:38 Legionella Urinary Antigen - Final
Urine Negative for Legionella pneumophila Serogroup 1 antigen.
A negative result does not rule out the possiblity of
Legionella infection due to other serogroups or species of
Legionella. Clinical correlation is recommended.
Streptococcus pneumoniae Antigen (M - Final
Negative for Streptococcus pneumoniae antigen.
A negative result does not exclude infection with
Streptococcus pneumoniae. Clinical correlation is
recommended.
01/21/24 CXR: Right basilar airspace opacity likely within the right lower lobe suspicious for pneumonia. Atelectasis is the alternative consideration.
[2024-01-24 12:31] LABS: Glucose - Point of Care 120 mg/dl (70-99)
--- NOTE | 2024-01-24 13:48 | PN.CDI ---
CDI
- -
CDI:
Physician Documentation Request
Admit Date: 01/21/24 13:51
Dear Doctor Georgina,
Clinical Indicators:
Patient admitted with septic shock due to PNA.
01/21 Hand Tufter PN, 'Decreased oral intake/FTT/temporal wasting...appears there is protein calorie malnutrition.'
01/23 RD note/assessment, -'RD able to observe appearance of orbital with somewhat hollow/dark circles, mild
depression at temples, mild protrusion of clavicle and visible ribs; fat/muscle loss on
calves.'
-'Pt feels she has been eating poorly for > or equal to 1 month, estimating <75%
estimated energy requirement. Pt meeting criteria for moderate protein/calorie
malnutrition (ASPEN/AND guidelines, chronic illness).'
Based on the information, which of the following most accurately represents the patient's nutritional status?
Moderate Protein Calorie Malnutrition
Mild Protein Calorie Malnutrition
Other (please specify)
Whittaker Criteria (ACP Hospitalist 2017)
2 or more criteria must be present for either
non severe or severe malnutrition
Note that the criteria differs related to the
presence of an acute or chronic illness
Acute Illness Chronic Illness
Energy Intake Non Severe: <75% for >7 days Non Severe: <75% for >1 month
Severe: <50% for >5 days Severe: <75% for >1 month
Weight Loss Non Severe: 1-2% over 1 week Non Severe: 5% over 1 month
5% over 1 month 7.5% over 3 months
7.5% over 3 months 10% over 6 months
1 year N/A 20% over 1 year
Severe: >2% over 1 week Severe: >5% over 1 month
>5% over 1 month >7.5% over 3 months
>7.5% over 3 months >10% over 6 months
1 year N/A >20% over 1 year
Body Fat Non Severe: Mild Decrease Non Severe: Mild Loss
Severe: Moderate Decrease Severe: Severe Loss
Muscle Mass Non Severe: Mild Decrease Non Severe: Mild Loss
Severe: Moderate Decrease Severe: Severe Loss
Fluid Accumulation Non Severe: Mild Accumulation Non Severe: Mild Accumulation
Severe: Moderate to severe Severe: Moderate to severe
accumulation accumulation
Reduced Cutting And Boning Supervisor Strength Non Severe: N/A Non Severe: N/A
Severe: Measurably reduced Severe: Measurably reduced
Additional criteria that can be used to Determine if Mild or Moderate Malnutrition (Merck Manual 2018)
Mild Moderate Severe
Albumin gm/dl <3.0 gm/dl <2.5 gm/dl <2.0 gm/dl
Pre Albumin mg/dl <15 gm/dl <10 mg/dl <5.0 mg/dl
BMI <18.5 <17 <16
Use of terms such as suspected, likely, concern for, or probable (associated with a specific diagnosis that is being evaluated, monitored, or treated as if it exists) are acceptable and can be coded in the inpatient setting, when documented at the
time of discharge.
Thank you,
LILI Chong RN
CDI Specialist
available via tiger text
Please use your independent medical judgment in providing your response.
--- NOTE | 2024-01-24 15:52 | CM ---
Following for d/c plan, family would like [facility] but currently no beds.
Plan: skilled rehab when stable, [facility].
[2024-01-24 16:15] VITALS: BP 137/80
[2024-01-24 18:10] LABS: Glucose - Point of Care 101 mg/dl (70-99)
[2024-01-24 19:00] VITALS: BP 133/91
[2024-01-24] MEDS: MELATONIN 5 MG PO (21:02)
[2024-01-24] MEDS: REMERON 7.5 MG PO (21:02)
[2024-01-24] MEDS: MELATONIN 3 MG PO (21:02)
[2024-01-24 22:15] LABS: Glucose - Point of Care 91 mg/dl (70-99)
[2024-01-24 23:00] VITALS: BP 126/84
[2024-01-25] MEDS: TYLENOL 650 MG PO (00:03)
[2024-01-25 03:00] VITALS: BP 110/79
[2024-01-25] MEDS: MAXIPIME 2000 MG IV (03:01)
[2024-01-25] MEDS: STERILE WATER FOR INJECTION 10 ML IV ×2 (03:01→13:14)
[2024-01-25 04:19] LABS: % Basophils 0.4 % (0-2); % Eosinophils 0.3 % (0-6); % Immature Granulocytes 1.8 % (0-0.5); % Lymphocytes 12.1 % (20.5-51.1); % Monocytes 5.9 % (1.7-9.3); % Neutrophils 79.5 % (42.2-75.2); Absolute Basophils 0.1 10^3/uL (0-0.2); Absolute Immature Granulocytes 0.2 10^3/uL (0-0.05); Absolute Lymphocytes 1.7 10^3/uL (1.2-3.4); Absolute Monocytes 0.8 10^3/uL (0.1-0.6); Absolute Neutrophils 10.8 10^3/uL (1.4-6.5); Hematocrit 29.3 % (37.0-47.0); Hemoglobin 9.9 g/dL (12.0-16.0); Mean Corp Hgb Conc. 33.8 g/dL (33.0-37.0); Mean Corpuscular Hgb 31.8 pg (27.0-31.0); Mean Corpuscular Volume 94.2 fL (81.0-99.0); Mean Platelet Volume 9.1 fL (7.4-10.4); Nucleated Red Blood Cells % 0 %; Platelet Count 306 10^3/uL (130-400); Red Blood Cell Count 3.11 10^6/uL (4.20-5.40); Red Cell Dist. Width 13.9 % (11.5-14.5); White Blood Cell Count 13.6 10^3/uL (4.8-10.8)
[2024-01-25 04:33] LABS: INR 4.72; PT 45.2 Sec (11.4-14.6)
[2024-01-25 05:01] LABS: ALT (SGPT) 17 U/L (0-35); AST (SGOT) 29 U/L (14-36); Albumin 2.3 g/dl (3.5-5.0); Alkaline Phosphatase 116 U/L (38-126); Blood Urea Nitrogen 34 mg/dl (7-17); Calcium 8.8 mg/dl (8.4-10.2); Carbon Dioxide 21 mmol/L (22-30); Chloride 103 mmol/L (98-107); Estimated Creatinine Clearance 47 ml/min; Glucose 80 mg/dl (70-99); Potassium 3.4 mmol/L (3.5-5.1); Sodium 130 mmol/L (135-145); Total Protein 5.4 g/dl (6.3-8.2); eGFR > 60.00
[2024-01-25 06:00] VITALS: BMI 25.7
[2024-01-25 07:49] VITALS: BP 121/78
[2024-01-25 08:06] LABS: Glucose - Point of Care 83 mg/dl (70-99)
--- NOTE | 2024-01-25 08:30 | PTOTSP ---
Speech Language Pathology
Pt seen for dysphagia tx. Aphonic vocal quality noted. Attempted puree foods. Pt initially with clenched teeth in response, but this did not appear purposeful. Pt able to open mouth with verbal and tactile cueing; however, did not appear to know
what to do with oral structures to strip bolus from spoon with significantly incoordinated and inconsistent oral movements, such as scraping spoon with upper teeth while oral cavity wide open and biting hard on metal spoon. Bolus remained in
anterior sulcus. Noted to initiate swallow x1 with full bolus remaining in oral cavity. Significant labial leakage noted, and pt stated she was not trying to do this when asked. Oral cavity needed be suctioned multiple times by PROCESS TRAINER to clear
bolus. Trialed sip of mildly thick orange juice. Swallow initiated post delay with mild diffuse oral residue. Minimal laryngeal movement noted. PROCESS TRAINER contacted PROCESS TRAINER who completed VSE 01/23 who came to observe pt and agrees this is a change in swallow
function. MD and RN notified.
Recommend:
(1) NPO
(2) Non-oral meds
(3) Oral care 4x/day with suctioning as needed
(4) Hold on Aspiration Risk Hydration Protocol (ARHP) at this time
(5) PROCESS TRAINER to continue to follow
[2024-01-25] MEDS: KCL 270 MEQ IV (08:42)
[2024-01-25] MEDS: LIDOCAINE 4% PATCH 1 PATCH TOPICAL (08:42)
[2024-01-25] MEDS: FEOSOL PO ×2 (08:42→09:03)
[2024-01-25] MEDS: ProAmatine PO ×4 (08:43→14:27)
[2024-01-25] MEDS: VITAMIN D3 (cholecalciferol) PO ×2 (08:43→09:03)
[2024-01-25] MEDS: ZOLOFT PO ×2 (08:44→09:04)
[2024-01-25] MEDS: ELIQUIS PO ×2 (08:44→09:02)
[2024-01-25] MEDS: ZENPEP DELAYED RELEASE CAPSULE PO ×3 (08:44→14:27)
[2024-01-25] MEDS: ROXICODONE PO ×4 (08:46→13:15)
--- NOTE | 2024-01-25 08:50 | PTCARENOTE ---
4/5- In with Speech therapist- Patient is unable to initiate intake of crushed meds in applesauce, chewing or swallowing. She spits it out in Bolus. AAOX2; She understands what is being spoken to her, but she cannot speak beyond 2-3 slow garbled
words- expressive aphagia. Weak R-hand grasp; Absent L-hand grasp. BL pupils briskly reactive at 2mm BL. Notified Physician; Initiated NIH and Neuro checks.
--- NOTE | 2024-01-25 09:00 | PTCARENOTE ---
3/5- Notified Physician who stated to call Stroke Alert. Called the Rapid; OE=988/80; HR=72; RR=14; Axillary temp=98; POX=93% on RA; Accucheck=89; 12lead EKG shows Afib with BBB as does Telemetry. Patient taken to CT. NPO d/t Aphagia. See
further orders.
[2024-01-25] MEDS: ZITHROMAX PO (09:05)
[2024-01-25 09:30] VITALS: BP 104/80
[2024-01-25 10:10] LABS: Glucose - Point of Care 85 mg/dl (70-99)
--- NOTE | 2024-01-25 10:20 | W.PN.HOSP.TC ---
Addendum entered and electronically signed by Jamie Erickson MD 01/25/24 14:34:
Chronic opioid use with dependence
Addendum entered and electronically signed by Jamie Erickson MD 01/25/24 10:54:
Moderate protein caloric malnutrition chronic illness
Original Note:
Today's Communication/Plan
-
Stroke alert
CT head pending
Start gentle fluids
Holding diuretic
Assessment / Plan
Assessment / Plan
General: No Apparent Distress, Comfortable, speaking soft
HEENT: NormoCephalic, Anicteric, mild pharyngeal erythema,
Respiratory: Clear; No Wheezes, Rales or Rhonchi
Cardiac: S1/S2, irregular irregular
Breast: Deferred by me
GI: Soft, Non Tender, Non Distended, Normal Bowel Sounds and No Hepatosplenomegaly
Genito-urinary: no rinaldi
Musculoskeletal: No edema, open blood blister left mid tib-fib, closed blood blister below that area no surrounding erythema)
Neuro: Awake, left upper extremity weakness. B/L LE weakness however, didnot put much effort to follow commands for complete neuro exam. Facial symmetry. Extraocular muscles intact. Sensation intact.
Psych: Calm
Septic shock 2/2 right basilar PNA
#Hx COVID October 2023
WBC 28, 91% RA, 98.1, HR 70
-speech following; on IDD5 diet with thin
bcx pending negative so far
probnp high
cw abx per ID on cefepime and azithromycin. Monitor mentation with cefepime.
ID following
didnt respond much to fluid; started levophed 01/20 and weaned off overnight
Start standing midodrine. Blood pressure stabilized
Strep, Legionella negative
procal 0.49
follow urine cx mixed darcie.
# Left-sided weakness
Stroke alert called. Did not receive Eliquis this morning
Failed swallow evaluation and spitting out food. Recommended n.p.o. per speech
NIHSS ordered
Neurology has been consulted
# Dysphagia
-Status post video swallow yesterday with modified diet and thick liquid.
-Failed swallow evaluation this morning spitting out food. Speech recommended n.p.o.
-Discussed this with daughter. Known issue. Daughter brought outside food.
-Start gentle fluids
-Appetite stimulant with Remeron was also started.
-Discussed PEG tube briefly with daughter who stated patient did not want that. If remains with persistently decreased appetite and does not want to eat MAY need to consider hospice.
#Hyponatremia
Na now 130
monitor
#Hypokalemia
replete/monitor
#Left lower extremity open blister, with below blood blister
#Chronic peripheral edema with peripheral neuropathy
-Consult wound care
#Chronic back pain/shoulder pain
-Continue oxycodone 5 mg 3 times daily hold for sedation
#Hx C. difficile
-Monitor for any diarrhea
#Chronic urinary incontinence
#Bladder stimulator January 2014
-Positive pyuria will follow urine culture
#Chronic memory impairment�moderate not formally diagnosed
By daughter had appointment with [facility] neurology next week
Suspected dementia
#Depression-New diagnosis 2 weeks ago
cw zoloft for now; if sodium becomes an issue then this needs to be stopped
#Pacemaker-bradycardia
#Permanent A-fib
-Follow [facility] cardiology
-Hold nebivolol
-Continue digoxin 62.5 mcg with hold parameters
-Continue Eliquis.
# Mild acute on chronic diastolic CHF
I/O, daily weights. proBNP elevated.
-Severely decreased appetite. Not eating much. Will hold diuretics for today.
2D echo 07/24/2022: EF 50-55%, normal LVS LVSF, diastolic function indeterminate due to A-fib, pacemaker wire seen, severe left atrial dilation no valvular issues no evidence of pulm HTN
#Sleep apnea hx
-Used to use machine but no longer has use in the past several years
Supratherapeutic INR falsely elevated due to Eliquis?
no bleeding; unclear reason. Coagulopathy due to sepsis
monitor
No luminal bleeding noted. Monitor hemoglobin. Has remained without significant drop so far
INR 4.7
Fall precaution
#History of resection secondary to adhesions
# GERD
-No PPI listed
#Pancreatic insufficiency
-Continue Zenpep twice daily
#Chronic ambulatory dysfunction
Uses walker to wheelchair max assist to
#Chronic right shoulder pain with limited range of motion to shoulder level
-Continue lidocaine patch right shoulder
# Suspect anemia of chronic disease
does have iron deficiency
-Continue Feosol
#Insomnia
#Obesity due to excess calorie consumption
DVT prophylaxis supratherapeutic INR and Eliquis
DNR
Long-term prognosis guarded.
Updated daughter at bedside in details
Anticipated Discharge: > 48 hours
Subjective/Interval History
-
Date of Service: January 25, 2024
Patient was spitting up food this morning
States of severely decreased appetite
Does not want to eat anything
Objective Data
-
Labs:
Laboratory Results
01/25/24 01/25/24
04:12 04:13
WBC 13.6 H
Hgb 9.9 L
Hct 29.3 L
Plt Count 306
PT 45.2 H
INR 4.72
Sodium 130 L
Potassium 3.4 L
Chloride 103
Carbon Dioxide 21 L
BUN 34 H
Creatinine 0.8
Glucose 80
Calcium 8.8
Total Bilirubin 1.0
AST 29
ALT 17
Alkaline Phosphatase 116
Vital Signs:
Vital Signs
Temp Pulse Resp BP Pulse Ox
97.4 F 87 16 121/78 94
01/25/24 07:49 01/25/24 07:49 01/25/24 07:49 01/25/24 07:49 01/25/24 07:49
I&O
01/24/24 01/25/24 01/26/24
06:59 06:59 06:59
Intake Total 850 / 850
Output Total 450 / 450
Balance 400 / 400
Data Reviewed
-
Total Time Spent with Patient (in minutes): 60
--- NOTE | 2024-01-25 10:36 | CON.NEURO4 ---
Consultation - Neurology 4
-
CONSULTING PHYSICIAN: Jonathan Castillo
REFERRING PHYSICIAN: Hospitalist
DICTATED BY: Jonathan Castillo
DATE/TIME OF REQUEST: 01/25/24
DATE/TIME OF CONSULTATION: 01/25/24
Reason for Consultation: Stroke alert
History of Present Illness:
Patient is a 78-year-old right-handed woman with a past ministry of atrial fibrillation on apixaban, pacemaker, pulmonary hypertension, heart failure with preserved ejection fraction, obstructive sleep apnea who presented to the hospital and was
admitted on 01/20 with symptoms of generalized weakness, confusion, poor appetite and malaise for 2 to 3 weeks before admission. On admission she had hypotension and there was concern for septic shock with right-sided pneumonia as most likely source,
she did require vasopressors briefly. She was moved out of the ICU and has been being continued on antibiotics with cefepime and azithromycin, also noted to have mild hyponatremia, and plan for video swallow based on dysphagia.
Patient noted by nursing and speech therapy to have significant expressive speech problems concerning for potentially an expressive aphasia which triggered stroke alert. Last known normal appears to be last night as nursing assessment at 830 this
morning she seemed to be in this condition. Last dose of Apixaban last night.
Patient's family relates that she is normally very talkative person and she has been getting a softer voice over the past couple of weeks. They do feel that she has had significant depression in the past couple of weeks. She has never had a TIA or
stroke to the best of their knowledge. She has baseline very severe right shoulder pain and some functional weakness as a result of this due to osteoarthritis.
Patient has been living in long-term living facility since approximately June 2023 previous to that she was getting a lot of assistance from her son, but she could have a conversation and get up and walk around with a walker and do simple
things like make coffee. Her passed around 3 years ago. They have been noticing in the past 2 years short-term memory difficulties and plan for neurology evaluation in the past couple of weeks. No history of severe psychiatric problems in
the past like any psychiatric hospitalizations, no family history of neurodegenerative disorders, no tremor or hallucinations.
Past Medical History: Atrial fibrillation, HFpEF, cognitive impairment with short term memory problems though no formal diagnosis yet, GERD, hypertension, nephrolithiasis, urinary incontinence, lymphedema, sleep apnea
Surgical History: Appendectomy, cholecystectomy, bowel resection of adhesions, permanent pacemaker, bladder stimulator, hysterectomy, left knee replacement, lumbar laminectomy, renal lithotripsy and stent
Family History: Non-contributory
Social History: Lives in a senior living care facility, former tobacco smoker, her passed 3 years ago, retired, has 3 adult children at bedside
Review of Symptoms:
Unable to obtain with aphasia
Physical Exam:
Elderly woman appears older than her stated age, right sided PICC line in place, no head trauma, oropharynx dry, no neck masses, heart rate regular, breathing unlabored, abdomen soft non tender, no lower extremity edema
Neurologic Examination:
Patient is awake, she tracks the examiner interacts, she has decreased spontaneous verbal output, at best says simple phrases and is able to identify the color red as well as identify a dollar bill, comprehension is intact follows simple commands
most of the time, seems to have expressive aphasia
There is mild dysarthria and soft seems hypophonic, no gaze preference resting gaze is midline, extra ocular movements are normal, no ptosis, visual arana full she can name numbers in all visual arana bilaterally, smile symmetric, pupils 3 mm
equal round and reactive to light bilaterally
Motor examination shows drift on the right arm with some effort against gravity on the right arm, right leg has some downward drift, left arm and leg appear full strength, increased tone on the right
Intact to noxious stimulation throughout
Reflexes trace throughout, no clonus
No ataxia on left arm, limited due to weakness on the right arm
Gait exam deferred
Neuro Imaging: CT head non contrast no acute abnormality, no hemorrhage, ASPECTS of 10
CTA head and neck no intracranial occlusion or stenosis seen. No carotid stenosis or occlusion, basilar artery patent.
Impressions
1. New onset mental status change seems to be expressive more than receptive aphasia. Highest concern is for a new ischemic stroke, other possibilities could include delirium which can occasionally mimic and aphasia from stroke, or neurotoxicity
from cefepime.
2. Right arm weakness is most likely due to history of osteoarthritis and chronic shoulder problems and pain
3. Admitted with septic shock due to pneumonia
4. History of short-term memory difficulties raising the potential for mild cognitive impairment or early Alzheimer's disease
5. Atrial fibrillation on apixaban, has permanent pacemaker
6. BRITTON
7. Pulmonary hypertension
8. Heart failure with preserved ejection fraction
Patient has the following risk factors for their symptoms: HFpEF, Atrial fibrillation, age, BRITTON
IV Tenecteplase/IAT candidacy: Contraindicated to TNK with Eliquis dose last night, no large vessel occlusion on CTA head and neck not an IAT candidate
Recommendations:
1. Neurologic checks and NIH stroke scales
2. Allow for permissive hypertension goal less than 220/120 for 24 hours until tomorrow morning at 830
3. Speech therapy evaluation appreciated, video swallow evaluation pending
4. Check routine EEG
5. Depending on workup with brain imaging and EEG, keep in mind potential for cefepime neurotoxicity
6. Minimize sedating medications
7. Would check transthoracic echocardiogram
8. Check MRI brain without contrast, patient does have pacemaker. If unable to obtain brain MRI in the next 1 [address] head noncontrast.
9. Hold Eliquis
10. Rectal aspirin daily in the meantime
11. Check lipid panel and hemoglobin A1c
12. Goal normoglycemia
Discussed patient care with: Hospitalist, nursing
NIH Stroke Score
Subsequent NIH Scale
Date of Subsequent NIH Scale: 01/25/24
Time of Subsequent NIH Scale: 10:54
NIH Stroke Score
Level of Consciousness: 0 - Alert
LOC Questions: 2-Neither correct
LOC Commands: 0-Performs both correctly
Best Horizontal Gaze: 0-Normal
Visual Arana: 0=Normal, no visual loss
Facial Palsy: 0=Normal, symmetrical
Motor - Right Arm: 2=Partial vs. gravity
Motor - Left Arm: 0=No drift 10 seconds
Motor - Right Le-Drift < 5 seconds
Motor - Left Le-No drift 5 seconds
Limb Ataxia: 0-Absent
Sensation: 0-Normal
Best Language: 2-Severe aphasia
Dysarthria: 1-Mild slurring
Extinction and Inattention: 0-No abnormality
Total Score:: 8
Home Medications
-
Home Medications
fdfmwx-qmtxmddt-bsddonl 40,000-126,000-168,000 unit capsule, delay rel (Zenpep) 2 cap PO BID@0900,1700 Gastrointestinal issue 07/22/22
apixaban 5 mg tablet 5 mg PO BID@0900,2100 Blood clot prevention/tx 12/08/22
digoxin 125 mcg (0.125 mg) tablet (Digitek) 62.5 mcg PO SUTUTHSA@0800 Heart Failure 12/08/22
cholecalciferol (vitamin D3) 125 mcg (5,000 unit) tablet (Vitamin D3) 5,000 unit PO DAILY@0900 Supplement 02/05/23
Calazime Intensive Paste 1 applic topical DAILY apply to B/L buttocks 01/21/24
Calazime Intensive Paste 1 applic topical DAILYPRN PRN apply to buttocks for skin excoriation 01/21/24
Glycerine Suppository 1 supp UT DAILYPRN PRN constipation 01/21/24
acetaminophen 325 mg tablet (Tylenol) 650 mg PO Q4H PRN mild pain/temp of 100.4F or above 01/21/24
benzocaine 15 mg-menthol 3.6 mg lozenges (Sore Throat (benzocaine with menthol)) 1 louis mucous membrane Q1HPRN PRN sore throat 01/21/24
bisacodyl 10 mg rectal suppository (Dulcolax (bisacodyl)) 10 mg UT DAILY PRN constipation 01/21/24
dextran 70-hypromellose (PF) 0.1 %-0.3 % eye drops in a dropperette (Artificial Tears (PF)) 1 drp BOTH EYES BIDPRN PRN irritation 01/21/24
ferrous sulfate 142 mg (45 mg iron) tablet,extended release 142 mg PO DAILY@0900 Supplement 01/21/24
furosemide 20 mg tablet 60 mg PO DAILY@0900 Fluid Retention/Swelling 01/21/24
lidocaine 4 % topical patch 1 patch topical DAILY@0900 apply to right shoulder 01/21/24
magnesium hydroxide 400 mg/5 mL oral suspension (Milk of Magnesia) 30 ml PO DAILY PRN constipation 01/21/24
melatonin 3 mg tablet 3 mg PO DAILY@2100 Sleep 01/21/24
melatonin 5 mg tablet 5 mg PO DAILY@2100 Sleep 01/21/24
naloxone 4 mg/actuation nasal spray 4 mg intranasal DAILYPRN PRN opioid overdose 01/21/24
nebivolol 5 mg tablet 5 mg PO DAILY@0900 Blood Pressure 01/21/24
omega 9-wuc-azt-fish oil 1,000 mg (120 mg-180 mg) capsule (Fish Oil) 1 cap PO DAILY@0900 Supplement 01/21/24
oxycodone 5 mg tablet 5 mg PO DAILYPRN PRN breakthrough pain 01/21/24
oxycodone 5 mg tablet 5 mg PO TID@0900,1300,1700 Pain 01/21/24
spironolactone 50 mg tablet 50 mg PO DAILY@0900 Blood Pressure 01/21/24
Allergies
-
Allergies
Allergy/AdvReac Type Severity Reaction Status Date / Time
adhesive Allergy TAPE-TEARS Verified 07/16/23 15:12
SKIN/BLISTERS
Aminoglycosides Allergy SEE COMMENT Verified 07/16/23 15:12
cefoxitin sodium Allergy Hives; Verified 07/16/23 15:12
[From Mefoxin] TOLERATES
CEPHALEXIN
celecoxib [From Celebrex] Allergy 'my blood Verified 07/16/23 15:12
pressure
shot right
up'
codeine Allergy NAUSEA Verified 07/16/23 15:12
ONLY, GI
UPSET
fluvoxamine [Fluvoxamine] Allergy SEE BELOW Verified 07/16/23 15:12
Influenza Virus Vaccines Allergy PT COULD Verified 07/16/23 15:12
NOT MOVE
HER BODY
marijuana (cannabis) Allergy afib with Verified 07/16/23 15:12
[marijuana] topical
medical
marijuana
methenamine Allergy Dr. Campbell Verified 07/16/23 15:12
told her
she was
allergic
to this
nystatin [Nystatin] Allergy Anaphylaxis Verified 07/16/23 15:12
Penicillins Allergy Hives Verified 07/16/23 15:12
pentosan polysulfate sodium Allergy STOMACH, Verified 07/16/23 15:12
[From Elmiron] GI
PROBLEMS,
LIVER
FUNCTION
ISSUE
prochlorperazine Allergy EXTRAPYRAMIDAL Verified 07/16/23 15:12
SYMPTOMS
rifaximin [From Xifaxan] Allergy Itching Verified 07/16/23 15:12
Sulfa (Sulfonamide Allergy Hives Verified 07/16/23 15:12
Antibiotics)
tobramycin Allergy HIVES--CONFIRMED Verified 07/16/23 15:12
WITH
PATIENT
tolterodine tartrate Allergy Swelling Verified 07/16/23 15:12
[From Detrol]
warfarin [From Coumadin] Allergy tolerance Verified 07/16/23 15:12
to
coumadin-doesnt
work
Vital Signs / Labs
-
Vital Signs and Labs:
Temp Pulse Resp BP Pulse Ox
97.4 F 87 16 121/78 93
01/25/24 07:49 01/25/24 07:49 01/25/24 07:49 01/25/24 07:49 01/25/24 08:50
01/25/24 04:12
01/25/24 04:13
01/24/24 01/24/24 01/25/24
12:30 18:09 04:12
WBC 13.6 H
RBC 3.11 L
Hgb 9.9 L
Hct 29.3 L
MCH 31.8 H
Abs Immat Gran (auto) 0.2 H
Absolute Neuts (auto) 10.8 H
Absolute Monos (auto) 0.8 H
Immature Gran % 1.8 H
Neutrophils % 79.5 H
Lymphocytes % 12.1 L
PT
Sodium
Potassium
Carbon Dioxide
BUN
Total Protein
Albumin
POC Glucose 120 H 101 H
01/25/24
04:13
WBC
RBC
Hgb
Hct
MCH
Abs Immat Gran (auto)
Absolute Neuts (auto)
Absolute Monos (auto)
Immature Gran %
Neutrophils %
Lymphocytes %
PT 45.2 H
Sodium 130 L
Potassium 3.4 L
Carbon Dioxide 21 L
BUN 34 H
Total Protein 5.4 L
Albumin 2.3 L
POC Glucose
--- NOTE | 2024-01-25 11:11 | CM ---
Stroke alert this am.
CT scan completed.
NPO per speech recommendations.
Plan: skilled rehab when stable.
[2024-01-25 11:19] VITALS: BP 107/72
[2024-01-25] MEDS: NSS 1000 IV (11:57)
[2024-01-25] MEDS: ASPIRIN RECTAL (12:06)
[2024-01-25 12:08] LABS: Glucose - Point of Care 106 mg/dl (70-99)
--- NOTE | 2024-01-25 12:08 | W.PN.ID1 ---
Date of Service
Date of Service: January 25, 2024
Today's Communication
Change abx's to ceftriaxone.
Assessment / Plan
#R PNA
# s/p Septic shock off pressor
# Leukocytosis oveall improving
# Stroke alert today
# Dysphagia/poor appetite. Currently NPO
-Blood cx's neg
-Ucx: contaminant
- Completed 5 days of azithromycin
- Neuro concern cefepime might contribute to decreased mentation
- Replace cefepime with ceftriaxone through 01/26.
#Additional Past Medical History:
HFpEF
BLE lymphedema
Afib
PPM
Pulm HTN
BRITTON, not on CPAP
UTI
remote hx C. diff
nephrolithiasis hx lithotripsy/stents
bladder stimulator
choledochojejunostomy
appendectomy
L TKR
L4-L5 laminectomy
Chief Complaint
-: Pneumonia
Subjective / Review of Systems
Stroke alert this am with slurred speech.
Also failed swallow study as patient spitting out food.
Currently NPO.
Feels weak
Vital Signs / Physical Exam
Vital Signs
Vital Signs
Temp Pulse Resp BP Pulse Ox
97.5 F 85 16 107/72 94
01/25/24 11:19 01/25/24 11:19 01/25/24 11:19 01/25/24 11:19 01/25/24 11:19
Physical Exam
Constitutional: Comfortable
Cardiovascular: Irregular Rate and S1/S2
Pulmonary: Clear (anteriorly)
Gastrointestinal: Soft, Non Tender and Non Distended
Neurological: Other (drowsy)
Objective Data
Lab Data
Lab Results
01/25/24 04:12
01/25/24 04:13
PT 45.2 Sec (11.4-14.6) H 01/25/24 04:13
INR 4.72 01/25/24 04:13
APTT 50.3 Sec (23.4-35.0) H 01/23/24 03:59
Estimated Creat Clear 47 ml/min 01/25/24 04:13
Lactic Acid Cancelled 01/21/24 16:00
Total Bilirubin 1.0 mg/dl (0.2-1.3) 01/25/24 04:13
AST 29 U/L (14-36) 01/25/24 04:13
ALT 17 U/L (0-35) 01/25/24 04:13
Alkaline Phosphatase 116 U/L (38-126) 01/25/24 04:13
Most recent labs reviewed.
Micro Results:
01/21/24 13:46 Blood Culture - Preliminary
Blood/Venous No Growth in 72 hours- Final report to follow
01/21/24 13:04 Blood Culture - Preliminary
Blood/Venous No Growth in 72 hours- Final report to follow
01/21/24 13:48 Streptococcus Screen ([facility]) - Final
Throat/Pharynx No Beta Hemolytic Streptococci Isolated
Streptococcus Rapid Screen - Final
Rapid Strep Screen (Group A) Negative
01/21/24 20:40 MRSA Screen - Final
Nose No Methicillin Resistant Staphylococcus aureus isolated.
01/21/24 10:38 Urine Culture - Final
Urine
01/21/24 10:38 Legionella Urinary Antigen - Final
Urine Negative for Legionella pneumophila Serogroup 1 antigen.
A negative result does not rule out the possiblity of
Legionella infection due to other serogroups or species of
Legionella. Clinical correlation is recommended.
Streptococcus pneumoniae Antigen (M - Final
Negative for Streptococcus pneumoniae antigen.
A negative result does not exclude infection with
Streptococcus pneumoniae. Clinical correlation is
recommended.
4/1/24 CXR: Right basilar airspace opacity likely within the right lower lobe suspicious for pneumonia. Atelectasis is the alternative consideration.
[2024-01-25] MEDS: ROCEPHIN 1000 MG IV (13:14)
--- NOTE | 2024-01-25 13:39 | EEG.RPT ---
Electroencephalogram Report
Recording
Date of EE01/25/24
Type of EEG: Routine
Length of EEG recordin minutes
Done with Video Recording: Yes
Patient Status: Inpatient
Recording Conditions: Awake and Drowsy
Hyperventilation Performed: No
Photic Stimulation Performed: Yes
Report
LESS THAN 1 HOUR REPORT
LESS THAN 1 HOUR EEG INTERPRETATION:
Mildly �moderately abnormal EEG due to occasional, medium amplitude left centro-parietal focal slowing in addition to mild generalized slowing.
CLINICAL CORRELATION:
This study was suggestive of a focal abnormality in the left centro-parietal region. Generalized slowing is suggestive of mild bihemispheric cortical dysfunction which may be secondary to medication exposure. No electrical seizures were recorded.
Clinical correlation is advised.
METHODS:
A 21 channel digitized electroencephalogram (EEG) was performed at the bedside in the emergency department. The 10/20 international system of electrode placement was used with ECG and lateral/vertical eye movements recorded. [employer] quantitative
analysis system was utilized.
ELECTROENCEPHALOGRAPHER IMPRESSION(S):
Quality of study
Fair�Good
Background
In maximal wakefulness, there was a medium amplitude anterior-posterior voltage gradient of theta frequency.
There were no significant asymmetries of background activity noted.
Sleep
Drowsiness present
Hyperventilation
Not performed
Photic Stimulation
No activation of the record
ECG
Irregularly irregular
Abnormal EEG Activity
Medium-high amplitude, frequent left centro-parietal (C3 maximal) theta-frequency slowing
--- NOTE | 2024-01-25 13:56 | PN.CDI ---
CDI
- -
CDI:
Physician Documentation Request
Admit Date: 01/21/24 13:51
Dear Doctor Georgina,
Clinical Indicators:
Patient admitted with septic shock due to PNA.
01/20 H & P, 'chronic neck and back pain with neuropathy to lower extremities on chronic oral opiates'
External medical summary includes: Chronic narcotic dependence (Jun,)
Home medications include: -Oxycodone 5 mg tablet 5 mg PO TID
-Oxycodone 5 mg tablet 5 mg PO DAILY PRN
Based on the above, could you clarify in the progress notes, the appropriate diagnosis, if significant, that supports the above medication usage:
Chronic opioid use with dependence
Chronic opioid use only
Other, please specify
Use of terms such as suspected, likely, concern for, or probable (associated with a specific diagnosis that is being evaluated, monitored, or treated as if it exists) are acceptable and can be coded in the inpatient setting, when documented at the
time of discharge.
Thank you,
LILI Chong RN
CDI Specialist
available via tiger text
Please use your independent medical judgment in providing your response.
[2024-01-25 18:21] LABS: Glucose - Point of Care 73 mg/dl (70-99)
[2024-01-25 19:00] VITALS: BP 114/75
[2024-01-25] MEDS: D5/0.9% SODIUM CHLORIDE 1000 IV (19:14)
[2024-01-25] MEDS: REMERON PO (19:41)
[2024-01-25] MEDS: MELATONIN PO ×2 (19:41)
[2024-01-25 23:00] VITALS: BP 110/68
[2024-01-26 03:08] VITALS: BP 125/71
[2024-01-26 06:13] LABS: INR 3.44; PT 34.6 Sec (11.4-14.6)
[2024-01-26 07:00] VITALS: BP 100/59
[2024-01-26] MEDS: ASPIRIN 300 MG RECTAL (07:25)
[2024-01-26] MEDS: FEOSOL PO (07:26)
[2024-01-26] MEDS: LANOXIN PO (07:27)
[2024-01-26] MEDS: LIDOCAINE 4% PATCH 1 PATCH TOPICAL (07:28)
[2024-01-26] MEDS: ProAmatine PO ×2 (07:32→11:19)
[2024-01-26] MEDS: VITAMIN D3 (cholecalciferol) PO (07:32)
[2024-01-26] MEDS: ZOLOFT PO (07:34)
[2024-01-26] MEDS: ZENPEP DELAYED RELEASE CAPSULE PO (07:34)
[2024-01-26] MEDS: ROXICODONE PO ×2 (07:35→11:19)
--- NOTE | 2024-01-26 09:49 | W.PN.HOSP.TC ---
Today's Communication/Plan
-
Hospice consult
Minimize medications
Assessment / Plan
Assessment / Plan
Gen-awake, alert, NAD
HEENT-NC, AT, anicteric, very dry oral mucous membranes
Neck-supple
CV-reg, no M, +S1/S2
Lungs-clear B/L
Abd-soft, NT, ND
Ext-no edema
Musculoskeletal-no cyanosis, clubbing
Skin-warm and dry bruising on lower extremities
Neuro-grossly non-focal
Psych-calm, cooperative
Septic shock -likely due to right lower lobe pneumonia. Community-acquired pneumonia versus aspiration. Shock resolved. White blood cell count trending down. Can discontinue further antibiotics given family and patient's wishes for comfort and
hospice.
Left-sided weakness -no stroke noted on brain MRI. CTA negative.
Dysphagia
-Status post video swallow yesterday with modified diet and thick liquid.
-Failed swallow evaluation this morning spitting out food. Speech recommended n.p.o.
No plans for feeding tube per patient and family wishes. Moving towards hospice.
Hyponatremia
Na now 130
Hypokalemia
Left lower extremity open blister, with below blood blister
Chronic peripheral edema with peripheral neuropathy
-Consult wound care
Chronic back pain/shoulder pain
-Continue oxycodone 5 mg 3 times daily hold for sedation
Hx C. difficile
-Monitor for any diarrhea
Chronic urinary incontinence
Bladder stimulator January 2014
-Positive pyuria will follow urine culture
#Chronic memory impairment�moderate not formally diagnosed
By daughter had appointment with [facility] neurology next week
Suspected dementia
#Depression-New diagnosis 2 weeks ago
cw zoloft for now; if sodium becomes an issue then this needs to be stopped
#Pacemaker-bradycardia
#Permanent A-fib
-Follow [facility] cardiology
-Hold nebivolol
-Continue digoxin 62.5 mcg with hold parameters
-Continue Eliquis.
# Mild acute on chronic diastolic CHF
I/O, daily weights. proBNP elevated.
-Severely decreased appetite. Not eating much. Will hold diuretics for today.
2D echo 07/24/2022: EF 50-55%, normal LVS LVSF, diastolic function indeterminate due to A-fib, pacemaker wire seen, severe left atrial dilation no valvular issues no evidence of pulm HTN
#Sleep apnea hx
-Used to use machine but no longer has use in the past several years
Supratherapeutic INR -perhaps due to malnutrition.
#History of resection secondary to adhesions
# GERD
-No PPI listed
#Pancreatic insufficiency
-Continue Zenpep twice daily
#Chronic ambulatory dysfunction
Uses walker to wheelchair max assist to
#Chronic right shoulder pain with limited range of motion to shoulder level
-Continue lidocaine patch right shoulder
# Suspect anemia of chronic disease
does have iron deficiency
-Continue Feosol
#Insomnia
#Obesity due to excess calorie consumption
DVT prophylaxis supratherapeutic INR and Eliquis
DNR
Long-term prognosis guarded.
Dispo -patient and family interested in home hospice. Consult placed. Discussed with case management. Stable for discharge when arrangements made.
Anticipated Discharge: Within 24 hours
Subjective/Interval History
-
Date of Service: January 26, 2024
Patient seen and examined. Family at the bedside. Patient keeps repeating that she just wants to go home, be left alone to be comfortable. Family in agreement.
Objective Data
-
Labs:
Laboratory Results
01/26/24
05:52
PT 34.6 H
INR 3.44
Vital Signs:
Vital Signs
Temp Pulse Resp BP Pulse Ox
97.8 F 88 18 100/59 93
01/26/24 07:00 01/26/24 07:00 04/06/24 07:00 01/26/24 07:00 01/26/24 07:00
I&O
01/25/24 01/26/24 01/27/24
06:59 06:59 06:59
Intake Total 1250 / 1250
Balance 1250 / 1250
Review of Systems
-
History Source: Patient
All other systems: Reviewed and negative
EENT: Reports Other (Mouth pain)
--- NOTE | 2024-01-26 10:08 | CM ---
CM met with patients daughter and son in law, requesting home hospice, would like [facility]. Referral sent in [facility]. CM will continue to follow for discharge planning needs.
Plan; home with [facility] pending acceptance.
[2024-01-26] MEDS: D5/0.9% SODIUM CHLORIDE 1000 IV (11:19)
[2024-01-26] MEDS: ProAmatine 5 MG PO ×2 (13:10→16:56)
[2024-01-26] MEDS: ROXICODONE 5 MG PO ×2 (13:10→16:56)
[2024-01-26] MEDS: STERILE WATER FOR INJECTION 10 ML IV (14:46)
[2024-01-26] MEDS: ROCEPHIN 1000 MG IV (14:46)
[2024-01-26 15:00] VITALS: BP 100/67
[2024-01-26] MEDS: MELATONIN 5 MG PO (21:49)
[2024-01-26] MEDS: MELATONIN 3 MG PO (21:49)
[2024-01-26 23:00] VITALS: BP 111/66
[2024-01-27 06:00] VITALS: BMI 25.5
[2024-01-27 07:00] VITALS: BP 112/75
[2024-01-27] MEDS: LOW STRENGTH ASPIRIN 81 MG PO (07:27)
[2024-01-27] MEDS: LANOXIN 62.5 MCG PO (07:27)
[2024-01-27] MEDS: ProAmatine 5 MG PO (07:28)
[2024-01-27] MEDS: ZOLOFT 25 MG PO (07:28)
--- NOTE | 2024-01-27 07:30 | PTCARENOTE ---
01/26- Patient is AAOX2, confused, forgetful, repeats same questions, needs reinforcement on education. Aphagia and Dysarthria significantly improved today. See NIH and Nursing Assessments.
[2024-01-27] MEDS: ROXICODONE 5 MG PO ×2 (07:31→23:17)
[2024-01-27] MEDS: LIDOCAINE 4% PATCH 1 PATCH TOPICAL (07:34)
--- NOTE | 2024-01-27 10:20 | W.PN.HOSP.TC ---
Today's Communication/Plan
-
Continue current care
Await family decision
Assessment / Plan
Assessment / Plan
Gen-awake, alert, NAD
HEENT-NC, AT, anicteric, very dry oral mucous membranes
Neck-supple
CV-reg, no M, +S1/S2
Lungs-clear B/L
Abd-soft, NT, ND
Ext-no edema
Musculoskeletal-no cyanosis, clubbing
Skin-warm and dry bruising on lower extremities
Neuro-grossly non-focal
Psych-calm, cooperative
Septic shock -likely due to right lower lobe pneumonia. Community-acquired pneumonia versus aspiration. Shock resolved. White blood cell count trending down. Currently on IV Rocephin.
Left-sided weakness -no stroke noted on brain MRI. CTA negative.
Dysphagia
-Status post video swallow yesterday with modified diet and thick liquid.
-Failed swallow evaluation this morning spitting out food. Speech recommended minced food. Thickened liquids.
No plans for feeding tube per patient and family wishes.
Hyponatremia -recheck labs today.
Hypokalemia -recheck labs today.
Left lower extremity open blister, with below blood blister
Chronic peripheral edema with peripheral neuropathy
-Consult wound care
Chronic back pain/shoulder pain
-Continue oxycodone 5 mg 3 times daily hold for sedation
Hx C. difficile
-Monitor for any diarrhea
Chronic urinary incontinence
Bladder stimulator January 2014
-Positive pyuria will follow urine culture
#Chronic memory impairment�moderate not formally diagnosed
By daughter had appointment with [facility] neurology next week
Suspected dementia
#Depression-New diagnosis 2 weeks ago
cw zoloft for now; if sodium becomes an issue then this needs to be stopped
#Pacemaker-bradycardia
#Permanent A-fib
-Follow [facility]ology
-Hold nebivolol
-Continue digoxin 62.5 mcg with hold parameters
-Continue Eliquis.
# Mild acute on chronic diastolic CHF
I/O, daily weights. proBNP elevated.
-Severely decreased appetite. Not eating much. Will hold diuretics for today.
2D echo 07/24/2022: EF 50-55%, normal LVS LVSF, diastolic function indeterminate due to A-fib, pacemaker wire seen, severe left atrial dilation no valvular issues no evidence of pulm HTN
#Sleep apnea hx
-Used to use machine but no longer has use in the past several years
Supratherapeutic INR -perhaps due to malnutrition.
#History of resection secondary to adhesions
# GERD
-No PPI listed
#Pancreatic insufficiency
-Continue Zenpep twice daily
#Chronic ambulatory dysfunction
Uses walker to wheelchair max assist to
#Chronic right shoulder pain with limited range of motion to shoulder level
-Continue lidocaine patch right shoulder
# Suspect anemia of chronic disease
does have iron deficiency
-Continue Feosol
#Insomnia
#Obesity due to excess calorie consumption
DVT prophylaxis supratherapeutic INR and Eliquis
DNR
Long-term prognosis guarded.
Dispo -medically stable for hospice but family remains undecided. Patient states she just wants to go home. Unclear if patient has decision-making capacity. Encourage patient's family to make a decision as soon as possible.
Anticipated Discharge: Within 24 hours
Subjective/Interval History
-
Date of Service: January 27, 2024
Patient seen and examined. No complaints. She keeps telling me that she just wants to go home.
Objective Data
-
Labs:
Laboratory Results
01/27/24
10:13
WBC Pending
Hgb Pending
Hct Pending
Plt Count Pending
Sodium Pending
Potassium Pending
Chloride Pending
Carbon Dioxide Pending
BUN Pending
Creatinine Pending
Glucose Pending
Calcium Pending
Total Bilirubin Pending
AST Pending
ALT Pending
Alkaline Phosphatase Pending
Vital Signs:
Vital Signs
Temp Pulse Resp BP Pulse Ox
98 F 83 18 112/75 97
01/27/24 07:00 01/27/24 07:27 01/27/24 07:00 01/27/24 07:00 01/27/24 07:30
I&O
01/26/24 01/27/24 01/28/24
06:59 06:59 06:59
Intake Total 1250 / 1250 240 / 240 540 / 540
Balance 1250 / 1250 240 / 240 540 / 540
Review of Systems
-
History Source: Patient
All other systems: Reviewed and negative
[2024-01-27 10:41] LABS: % Basophils 0.2 % (0-2); % Eosinophils 0.4 % (0-6); % Immature Granulocytes 1.7 % (0-0.5); % Monocytes 5.6 % (1.7-9.3); % Neutrophils 80.1 % (42.2-75.2); Absolute Eosinophils 0.1 10^3/uL (0-0.7); Absolute Immature Granulocytes 0.2 10^3/uL (0-0.05); Absolute Lymphocytes 1.4 10^3/uL (1.2-3.4); Absolute Monocytes 0.6 10^3/uL (0.1-0.6); Absolute Neutrophils 9.2 10^3/uL (1.4-6.5); Hematocrit 29.1 % (37.0-47.0); Hemoglobin 9.7 g/dL (12.0-16.0); Mean Corp Hgb Conc. 33.3 g/dL (33.0-37.0); Mean Corpuscular Hgb 31.7 pg (27.0-31.0); Mean Corpuscular Volume 95.1 fL (81.0-99.0); Mean Platelet Volume 9.2 fL (7.4-10.4); Nucleated Red Blood Cells % 0 %; Platelet Count 267 10^3/uL (130-400); Red Blood Cell Count 3.06 10^6/uL (4.20-5.40); Red Cell Dist. Width 14.6 % (11.5-14.5); White Blood Cell Count 11.5 10^3/uL (4.8-10.8)
[2024-01-27 10:52] LABS: ALT (SGPT) 18 U/L (0-35); AST (SGOT) 28 U/L (14-36); Albumin 2.2 g/dl (3.5-5.0); Alkaline Phosphatase 121 U/L (38-126); Blood Urea Nitrogen 18 mg/dl (7-17); Carbon Dioxide 23 mmol/L (22-30); Chloride 115 mmol/L (98-107); Estimated Creatinine Clearance 63 ml/min; Glucose 85 mg/dl (70-99); Potassium 3.3 mmol/L (3.5-5.1); Sodium 139 mmol/L (135-145); Total Bilirubin 0.6 mg/dl (0.2-1.3); Total Protein 5.5 g/dl (6.3-8.2); eGFR > 60.00
[2024-01-27] MEDS: ROXICODONE PO ×2 (12:03→16:33)
[2024-01-27] MEDS: ProAmatine PO ×2 (12:03→16:33)
[2024-01-27] MEDS: ELIQUIS PO (12:03)
--- NOTE | 2024-01-27 12:04 | PTCARENOTE ---
01/26- Patient is now refusing all medications, stating, 'I just want to go home,' repeating the phrase. Patient is now pale, fatigued; cool hands/feet but +PulsesX4. Family asked again about treatment options and what hospice means. Educated
Family about options; Hospice and included Therapeutic supportive conversation. Included questions for Physician about treatment options as well. They verbalized understanding to education of Hospice and Treatment options.
--- NOTE | 2024-01-27 12:11 | CM ---
Addendum entered by Kelsey Castro 01/27/24 15:06:
CM spoke with patients daughter, Theresa, would like to bring patient home tomorrow if possible. CM spoke with Jelly from [facility] [phone], will send information to nurse and have them call CM back. CM will wait to hear from [facility]
[place] that they can accept patient for tomorrow.
Original Note:
CM met with patients children, family has made a decision to take patient home with [facility]. CM sent update to [facility] that family is agreeable to home hospice services. CM left message with [facility] office, waiting
return call. CM will continue to follow for discharge planning needs.
Plan; home with [facility]
[2024-01-27] MEDS: KCL IV (12:17)
[2024-01-27 12:44] LABS: Magnesium 2.1 mg/dl (1.6-2.3)
[2024-01-27] MEDS: STERILE WATER FOR INJECTION 10 ML IV (12:48)
[2024-01-27] MEDS: ROCEPHIN 1000 MG IV (12:48)
[2024-01-27] MEDS: KCL 270 MEQ IV (12:51)
[2024-01-27 15:00] VITALS: BP 94/64
[2024-01-27 15:50] VITALS: BP 94/64
[2024-01-27] MEDS: ELIQUIS 5 MG PO (19:38)
[2024-01-27] MEDS: MELATONIN PO ×2 (23:14)
[2024-01-27] MEDS: ATIVAN 0.5 MG IV (23:16)
[2024-01-27 23:25] VITALS: BP 124/83
[2024-01-28] MEDS: ROXICODONE 5 MG PO ×4 (05:45→15:57)
[2024-01-28 06:00] VITALS: BMI 25.0
[2024-01-28 07:37] VITALS: BP 121/84
[2024-01-28] MEDS: ProAmatine 5 MG PO ×3 (07:46→15:56)
[2024-01-28] MEDS: LOW STRENGTH ASPIRIN 81 MG PO (07:46)
[2024-01-28] MEDS: ZOLOFT 25 MG PO (07:47)
[2024-01-28] MEDS: LIDOCAINE 4% PATCH 1 PATCH TOPICAL (07:47)
[2024-01-28] MEDS: ELIQUIS 5 MG PO (07:47)
--- NOTE | 2024-01-28 09:01 | CM ---
Addendum entered by Yesica Darling 01/28/24 11:56:
script faxed to [facility]- evaluate and treat.
[facility]
Addendum entered by Yesica Darling 01/28/24 10:27:
Met with patients daughter [facility] bedside.
IMM completed.
Per [facility] bed to be delivered.
Daughter and hospice requested scripts to get patient thru until hospice medication kit arrives tomorrow. TT to MD.
Theresa requested [facility] in [place].
Patient for d/c home to [address] [place] [address] Rd, [place] [address]
Transport forms on chart. ]
Plan: home on Hospice with [facility]
Original Note:
TC from [facility] [phone], she will contact pablo Cardenas to start arrangements for home equipment and home with hospice services.
Outpatient DNR to be signed on front of chart.
Patient will require ambulance transport.
Plan: home with Hospice once arranged with [facility], await TCB from [facility].
--- NOTE | 2024-01-28 11:17 | W.PN.HOSP.TC ---
Today's Communication/Plan
-
Hospice today
Assessment / Plan
Assessment / Plan
Gen-awake, alert, NAD
HEENT-NC, AT, anicteric, very dry oral mucous membranes
Neck-supple
CV-reg, no M, +S1/S2
Lungs-clear B/L
Abd-soft, NT, ND
Ext-no edema
Musculoskeletal-no cyanosis, clubbing
Skin-warm and dry bruising on lower extremities
Neuro-grossly non-focal
Psych-calm, cooperative
Septic shock -likely due to right lower lobe pneumonia. Community-acquired pneumonia versus aspiration. Shock resolved. White blood cell count trending down. Currently on IV Rocephin. And can stop as planned for hospice
Left-sided weakness -no stroke noted on brain MRI. CTA negative.
Dysphagia
-Status post video swallow yesterday with modified diet and thick liquid.
-Failed swallow evaluation this morning spitting out food. Speech recommended minced food. Thickened liquids.
No plans for feeding tube per patient and family wishes.
Hyponatremia -resolved
Hypokalemia -replete and monitor
Left lower extremity open blister, with below blood blister
Chronic peripheral edema with peripheral neuropathy
-Consult wound care
Chronic back pain/shoulder pain
-Continue oxycodone 5 mg 3 times daily hold for sedation
Hx C. difficile
-Monitor for any diarrhea
Chronic urinary incontinence
Bladder stimulator January 2014
-Positive pyuria will follow urine culture
#Chronic memory impairment�moderate not formally diagnosed
By daughter had appointment with [facility] neurology next week
Suspected dementia
#Depression-New diagnosis 2 weeks ago
cw zoloft for now; if sodium becomes an issue then this needs to be stopped
#Pacemaker-bradycardia
#Permanent A-fib
-Follow [facility] cardiology
-Hold nebivolol
-Continue digoxin 62.5 mcg with hold parameters
-Continue Eliquis.
# Mild acute on chronic diastolic CHF
I/O, daily weights. proBNP elevated.
-Severely decreased appetite. Not eating much. Will hold diuretics for today.
2D echo 07/24/2022: EF 50-55%, normal LVS LVSF, diastolic function indeterminate due to A-fib, pacemaker wire seen, severe left atrial dilation no valvular issues no evidence of pulm HTN
#Sleep apnea hx
-Used to use machine but no longer has use in the past several years
Supratherapeutic INR -perhaps due to malnutrition.
#History of resection secondary to adhesions
# GERD
-No PPI listed
#Pancreatic insufficiency
-Continue Zenpep twice daily
#Chronic ambulatory dysfunction
Uses walker to wheelchair max assist to
#Chronic right shoulder pain with limited range of motion to shoulder level
-Continue lidocaine patch right shoulder
# Suspect anemia of chronic disease
does have iron deficiency
-Continue Feosol
#Insomnia
#Obesity due to excess calorie consumption
DVT prophylaxis supratherapeutic INR and Eliquis
DNR
Long-term prognosis guarded.
Dispo -family has decided to transition to hospice. DNR form signed. Will send prescription pain meds till hospice meds arrive tomorrow.
More than 30 minutes spent in discharge including
Final examination of the patient
Summarizing hospital stay
Instructions for continuing care to all relevant caregivers
Preparation of discharge records, prescriptions, and referral forms
Total time spent (in minutes): 45
Anticipated Discharge: Today
Subjective/Interval History
-
Date of Service: January 28, 2024
States she is eager to go home
Family has decided to transition to hospice
Objective Data
-
Vital Signs:
Vital Signs
Temp Pulse Resp BP Pulse Ox
97.9 F 98 18 121/84 97
01/28/24 07:37 01/28/24 07:37 01/28/24 07:37 01/28/24 07:37 01/28/24 07:45
I&O
01/27/24 01/28/24 01/29/24
06:59 06:59 06:59
Intake Total 240 / 240 660 / 660
Balance 240 / 240 660 / 660
--- NOTE | 2024-01-28 11:24 | W.[place]-PDMP ---
[place]PD[place]
-
Checked the [place]- Prescription Drug Monitoring Program website, no red flags identified; safe to proceed with prescription. Med sent till hospice kit arrives.
--- NOTE | 2024-01-28 11:24 | W.DCSUMMARY ---
Discharge Summary
Discharge Data
Date of Admission: 01/21/24
Date of Discharge: 01/28/24
-
Pending Results: No
Hospital Course
78 yo F with past medical history of chronic back pain, chronic opiate dependent, history of seizures, chronic urinary incontinence, chronic memory impairment, depression, pacemaker, A-fib, diastolic heart failure, sleep apnea, GERD, pancreatic
insufficiency, chronic ambulatory dysfunction who is presenting with septic shock. Patient was monitored in the medical ICU. Patient required Levophed briefly. Infectious disease was consulted. Patient was started on intravenous antibiotics per
ID. Blood pressure stabilized. Patient was started on midodrine. Diuretics and beta-mehreen was held. Patient was transferred out of medical ICU. Patient had a rapid response as concern for left-sided weakness and MRI was negative. Cefepime
was discontinued due to neurotoxicity concern. Ceftriaxone was started in place of cefepime. Patient failed swallow evaluation multiple times. Patient was restarted on modified diet. Patient and family did not want PEG tube. Patient with poor
appetite and family decided to transition to hospice. Patient be discharged home on hospice.
Discharge Plan
-
Patient Disposition: Home with Hospice
Discharge Diagnosis/Procedures: Septic shock due to pneumonia
Left-sided weakness
Dysphagia
Hyponatremia
Hypokalemia
Mild acute on chronic diastolic heart with exacerbation
Supratherapeutic INR
Diet: As tolerated
Activity: With assistance and As tolerated
Driving Restrictions: No driving
Referrals:
Manuel Pimentel, DO [Family Provider] - in less than 1 week
Prescriptions:
New
lorazepam [Ativan] 0.5 mg tablet
0.5 mg PO TID PRN (Reason: anxiety) Qty: 7 0RF
Continued
Zenpep 40,000-126,000- 168,000 unit Capsule,Delayed Release(Dr/Ec)
2 cap PO BID@0900,1700
acetaminophen [Tylenol] 325 mg Tablet
650 mg PO Q4H MDD 3000 mg PRN (Reason: mild pain/temp of 100.4F or above)
lidocaine 4 % Adhesive Patch,Medicated
1 patch TOPICAL DAILY@0900
melatonin 3 mg Tablet
3 mg PO DAILY@2099
Rx Instructions:
01/21/2024, take with 5 mg for a total of 8 mg.
magnesium hydroxide [Milk of Magnesia] 400 mg/5 mL Suspension
30 ml PO DAILY PRN (Reason: constipation)
bisacodyl [Dulcolax (bisacodyl)] 10 mg Suppository
10 mg OR DAILY PRN (Reason: constipation)
melatonin 5 mg Tablet
5 mg PO DAILY@2099
Rx Instructions:
01/21/2024, take with 3 mg for a total of 8 mg.
Artificial Tears (PF) 0.1-0.3 % Dropperette
1 drp BOTH EYES BIDPRN PRN (Reason: irritation)
naloxone 4 mg/actuation [place],Non-Aerosol
4 mg INTRANASAL DAILYPRN PRN (Reason: opioid overdose)
Calazime Intensive Paste
1 applic topical DAILYPRN PRN (Reason: apply to buttocks for skin excoriation)
Calazime Intensive Paste
1 applic topical DAILY
oxycodone 5 mg Tablet
5 mg PO TID@0900,1300,1700 Qty: 7 0RF
Discontinued
apixaban 5 mg Tablet
5 mg PO BID@0900,2100
digoxin [Digitek] 125 MCG tablet
62.5 mcg PO SUTUTHSA@0800
cholecalciferol (vitamin D3) [Vitamin D3] 125 mcg (5,000 unit) Tablet
5,000 unit PO DAILY@0900
furosemide 20 mg Tablet
60 mg PO DAILY@0900
spironolactone 50 mg Tablet
50 mg PO DAILY@0900
oxycodone 5 mg Tablet
5 mg PO DAILYPRN PRN (Reason: breakthrough pain)
nebivolol 5 mg Tablet
5 mg PO DAILY@0900
Slow Fe 142 mg (45 mg iron) Tablet Extended Release
142 mg PO DAILY@0900
omega 1-xgm-puo-fish oil [Fish Oil] 1,000 mg (120 mg-180 mg) Capsule
1 cap PO DAILY@0900
Sore Throat (benzocaine-menth) 15-3.6 mg Lozenge
1 louis MUCOUS MEMBRANE Q1HPRN PRN (Reason: sore throat)
Glycerine Suppository
1 supp OR DAILYPRN PRN (Reason: constipation)
Discharge Orders:
Discharge Patient (As Directed); Ordered 01/28/24
Ordered By: Jamie Erickson
Discharge Date and Time
Print Language: SAMI
[2024-01-28] MEDS: ROCEPHIN 1000 MG IV (13:07)
[2024-01-28] MEDS: STERILE WATER FOR INJECTION 10 ML IV (13:08)
[2024-01-28 15:17] VITALS: BP 120/69
== END 2024-01-28 18:23 | disposition hospice, home (50) | DRG 871 ==
LOC: 4 WEST ACU 13:51
PROVIDERS: Clinical Nurse Specialist Family Health; Hospitalist; Internal Medicine Critical Care Medicine; Nurse Practitioner Primary Care; ADMITTING PHYSICIAN Internal Medicine; ATTENDING PHYSICIAN Hospitalist; CONSULT PHYSICIAN Internal Medicine; CONSULT PHYSICIAN Internal Medicine Infectious Disease; CONSULT PHYSICIAN Student in an Organized Health Care Education/Training Program; EMERGENCY PHYSICIAN Emergency Medicine; FAMILY PHYSICIAN Family Medicine
DX: A41.9 Sepsis, unspecified organism (principal); I50.33 Acute on chronic diastolic (congestive) heart failure; J18.9 Pneumonia, unspecified organism; R65.21 Severe sepsis with septic shock; N39.0 Urinary tract infection, site not specified; I48.21 Permanent atrial fibrillation; E87.1 Hypo-osmolality and hyponatremia; L03.116 Cellulitis of left lower limb; E87.20 Acidosis, unspecified; E44.0 Moderate protein-calorie malnutrition; F11.20 Opioid dependence, uncomplicated; D68.9 Coagulation defect, unspecified; I11.0 Hypertensive heart disease with heart failure; E87.6 Hypokalemia; G89.4 Chronic pain syndrome; F32.A Depression, unspecified; G47.33 Obstructive sleep apnea (adult) (pediatric); K21.9 Gastro-esophageal reflux disease without esophagitis; Z66 Do not resuscitate
CPT/HCPCS: 0042T; 70450; 70496; 70498; 70551; 71045; 71046; 74230; 80048; 80053; 80162; 81003; 81015; 82962; 83605; 83690; 83735; 83880; 84145; 85025; 85610; 85730; 87040; 87070; 87086; 87449; 87880; 87899; 92526; 92610; 92611; 93005; 93306; 95816; 96361; 96365; 97110; 97163; 97167; 99285; Q9967